=== PATIENT | male | born 1975 | race African-American/Black ===

== ENCOUNTER 2021-09-29 23:25 | Observation (INO) | payer OTHER, SELFPAY ==
--- NOTE | ~2021-09-29 | CT_ITS ---
EXAMINATION: CT ABDOMEN AND PELVIS WITHOUT CONTRAST CLINICAL INFORMATION: Rectal pressure/pain. Urinary symptoms. Question of prostatitis. COMPARISON: None TECHNIQUE: Multidetector volumetric imaging was performed from the superior aspect of the liver through the pubic symphysis. Sagittal and coronal reformatted images were obtained on the technologist's workstation. This CT examination was performed using dose optimization techniques as appropriate, variously including the following: *Automated exposure control *Adjustment of mA and/or kV according to patient size (this includes techniques or standardized protocols for targeted exams where dose is matched to indication/reason for exam; i.e. extremities or head) *Use of iterative reconstruction technique DLP: 559 mGy-cm FINDINGS: LUNG BASES: The visualized lung bases are unremarkable. LIVER, GALLBLADDER, AND BILIARY TREE: The liver is normal in size, shape, and attenuation. No focal hepatic lesion or biliary ductal dilatation is present. Gallbladder unremarkable. PANCREAS: Unremarkable. SPLEEN: Unremarkable. ADRENAL GLANDS: Unremarkable. KIDNEYS AND URETERS: The kidneys are normal in size, shape, and attenuation. No hydronephrosis, hydroureter, or calculi seen. No perinephric stranding. BLADDER: Underdistended. Accounting for this, the bladder wall still appears thickened and there is perivesicular fat stranding. GASTROINTESTINAL TRACT: Scattered sigmoid colonic diverticula. No evidence of diverticulitis. Normal appendix. Stomach and small bowel unremarkable. ABDOMINAL WALL: No significant hernia is appreciated. LYMPH NODES: Normal. VASCULAR: Unremarkable. PELVIC VISCERA: Prostate is moderately enlarged measuring 5.8 cm. There is a periprosthetic fat stranding, with inflammation extending posteriorly about the mesorectal fascia. OSSEOUS STRUCTURES: No acute or suspicious osseous abnormalities. CT/CT abdomen pelvis wo con IMPRESSION: Imaging findings are compatible with cystitis and prostatitis. Scattered sigmoid colonic diverticula without evidence of diverticulitis.
[2021-09-29 23:35] VITALS: BP 138/90; PULSE 100; RESP 14; TEMP 37.8; O2SAT 98; BMI 27.2
[2021-09-30] VITALS (10 sets, daily range): BP systolic 112–143; BP diastolic 65–90; PULSE 64–115; RESP 16–20; TEMP 35.9–38.2; O2SAT 96–98
--- NOTE | 2021-09-30 00:29 | ED.ABDPAIN ---
HPI - Abdominal Pain General Chief Complaint: Abdominal Pain Stated Complaint: constipation, abdominal pain Time Seen by Provider: 09/29/21 23:54 Source: patient and EMS Mode of arrival: EMS Limitations: no limitations History of Present Illness HPI narrative: 46-year-old male previously healthy here with reports of lower abdominal discomfort, rectal pressure and pain, decreased urination since Saturday evening. Patient tells me he has tried taking MiraLax, Colace and Pepto as he felt like he was constipated. He did have some loose stools today but still feels the urge to move his bowels. He also had a fever that was subjective on Saturday and . None today. No vomiting. Related Data Allergies Allergy/AdvReac Type Severity Reaction Status Date / Time amoxicillin [AMOXICILLIN] Allergy Unknown RASH Unverified 12/31/19 18:20 clindamycin [CLINDAMYCIN] Allergy Unknown rash,itchy, Unverified 12/31/19 18:20 difficulty breathing Pork/Porcine Containing Allergy Unknown UNKNOWN Unverified 12/31/19 18:20 Products [PORK/PORCINE CONTAINING PRODUCTS] Penicillins [PCN] AdvReac Intermediate HIVES Unverified 12/31/19 18:20 Review of Systems Review of Systems Yes all other systems are reviewed and are negative Constitutional: Reports no additional constitutional complaints, Denies body ache(s), Denies chills, Denies fever(s), Denies headache(s) and Denies weakness Eyes: Reports no additional eye complaints and Denies change in vision Reports system reviewed and no additional complaints, except as documented, Denies dizziness, Denies headache(s), Denies nasal congestion, Denies nasal discharge and Denies neck pain Cardiovascular: Reports no additional cardiovascular complaints, Denies chest pain, Denies leg edema and Denies dyspnea Respiratory: Reports no additional respiratory complaints, Denies cough and Denies dyspnea Gastrointestinal: Reports no additional gastrointestinal complaints, Reports abdominal pain, Denies diarrhea, Denies nausea and Denies vomiting Comments: rectal pressure and pain Genitourinary: Denies urinary incontinence Comments: decreased urination Musculoskeletal: Reports no additional musculoskeletal complaints, Denies back pain, Denies arthralgias, Denies joint swelling, Denies neck pain, Denies numbness and Denies tingling Skin/Breast: Reports system reviewed and no additional complaints, except as docu and Denies rash Reports system reviewed and no additional complaints, except as documented, Denies dizziness, Denies headache(s), Denies numbness, Denies tingling and Denies weakness PMFSH Past Medical History Attestation statement: The following information was validated with the patient. Source: old records reviewed and nursing notes reviewed Social History Social History Advance Directives: No Physical Exam ED Vital Signs: Vital Signs - 24 hr 09/29/21 23:35 09/30/21 00:33 09/30/21 01:32 Temperature 100.1 F 100.7 F H 99.7 F Pulse Rate 103 H Respiratory Rate 14 16 Blood Pressure 129/90 H Pulse Oximetry 98 Oxygen Delivery Method Room Air Room Air BMI result Body Mass Index 27.2 Const General: cooperative, healthy appearing and comfortable Orientation/consciousness: oriented to time Limitations: no limitations HENMT Head: Yes normal to inspection Ears: hearing grossly normal bilaterally Eyes General: appearance normal, both eyes and all related structures Pupils: Equal, round and reactive pupils present Neck Neck: Yes normal visual inspection Chest Chest palpation & inspection: normal inspection of the chest Resp Effort & Inspection: normal respiratory effort Auscultation: clear to auscultation bilaterally Cardio Rate: regular rate Rhythm: regular rhythm Peripheral pulses: Peripheral pulses 2+ throughout 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 Tachycardic. At this time infection is suspected. Blood cultures and lactic acid ordered. Antibiotics ordered. Time: 00:40 Reevaluation #2: CT consistent with prostatitis. Patient has a little mild leukocytosis and elevated lactic acid. He is having considerable amount of pain and so I will provide analgesia. Will admit to medicine service for IV antibiotics and pain control. Time: 01:40 Reevaluation #3: Spoke to Dr. Stokes who accepted admission Time: 01:45 MDM - Abdominal Pain MDM Narrative Medical decision making narrative: 46-year-old male previously healthy here with reports of 3 days of rectal pressure, rectal pain, lower abdominal discomfort, the urge to defecate, decreased urine output. Patient is taking Pepto, Colace, MiraLax at home with continued symptoms. He did have some loose stools earlier today but is having continued symptoms. His abdomen is soft nontender. He has active bowel sounds. His rectal exam is negative for any impaction. His prostate is boggy but nontender. Consider prostatitis. will check labs, UA, CT pelvis Medical Records Attestation: I reviewed the patient's medical records. Lab Data Attestation: I reviewed the patient's lab results. Result diagrams: 09/30/21 00:31 09/30/21 00:31 Labs: Lab Results 09/30/21 09/30/21 09/30/21 Range/Units 00:31 00:31 00:31 WBC 11.9 H (4.8-10.8) X10*3/uL RBC 5.34 (4.60-5.80) X10*6/uL Hgb 15.4 (14.0-18.0) g/dl Hct 45.9 (42.0-52.0) % MCV 86.0 (80.0-98.0) fL MCH 28.8 (27.0-33.0) pg MCHC 33.6 (31.0-36.0) g/dl RDW 12.9 (11.0-16.0) % Plt Count 144 L (160-400) X10*3/uL MPV 10.8 (9.4-12.4) fL Immature Gran % (Auto) 0.9 H (0.0-0.4) % Neut % (Auto) 78.4 H (45-73) % Lymph % (Auto) 10.4 L (20-40) % [place] % (Auto) 9.9 (2-11) % Eos % (Auto) 0.2 (0-4) % Baso % (Auto) 0.2 (0-2) % Lymph # (Auto) 1.2 (1.2-4.9) X10*3/uL [place] # (Auto) 1.2 (0.1-1.2) X10*3/uL Eos # (Auto) 0.0 (0.0-0.4) X10*3/uL Baso # (Auto) 0.0 (0.0-0.2) X10*3/uL Abs Immat Gran (auto) 0.11 H (0.00-0.03) X10*3/uL Absolute Neuts (auto) 9.4 H (2.0-8.3) x10*3/uL Absolute Nucleated RBC 0.000 (0.0-0.012) X10*3/uL Nucleated RBC % (auto) 0.0 (0.0-0.2) /100WBC Sodium 135 (135-145) mmol/L Potassium 4.9 (3.3-5.1) mmol/L Chloride 102 (96-108) mmol/L Carbon Dioxide 24 (22-29) mmol/L Anion Gap 14 (12-20) BUN 8 L (9-16) mg/dL Creatinine 1.38 (0.5-1.4) mg/dL Estim Creat Clear Calc 69.0 Estimated GFR 55 Random Glucose 114 (60-115) mg/dL Lactic Acid (0.5-2.0) mmol/L Calcium 9.1 (8.4-10.2) mg/dL Total Bilirubin 0.5 (0.0-1.0) mg/dL Direct Bilirubin 0.2 (0.0-0.5) mg/dL AST 17 (5-37) U/L ALT 39 (0-40) U/L Alkaline Phosphatase 109 (39-117) U/L Total Protein 6.9 (6.5-8.0) g/dL Albumin 4.0 (3.5-5.0) g/dL Urine Color YELLOW Urine Appearance HAZY Urine pH 6.5 (5.0-8.0) Ur Specific [place] 1.015 (1.005-1.025) Urine Protein 2+ H (NEG-TRACE) MG/DL Urine Glucose (UA) NEG (NEG) MG/DL Urine Ketones 15 (NEG) MG/DL Urine Blood 2+ H (NEG) Urine Nitrite NEG (NEG) Ur Leukocyte Esterase NEG (NEG) Urine RBC 0-2 (0) /HPF Urine WBC 0-2 (0-4) /HPF Ur Squamous Epith Cells TRACE /LPF Urine Bacteria TRACE /LPF Urine Mucus TRACE /LPF COVID-19 (JUDI) (Negative) COVID-19 Clin Com 09/30/21 09/30/21 Range/Units 00:50 01:03 WBC (4.8-10.8) X10*3/uL RBC (4.60-5.80) X10*6/uL Hgb (14.0-18.0) g/dl Hct (42.0-52.0) % MCV (80.0-98.0) fL MCH (27.0-33.0) pg MCHC (31.0-36.0) g/dl RDW (11.0-16.0) % Plt Count (160-400) X10*3/uL MPV (9.4-12.4) fL Immature Gran % (Auto) (0.0-0.4) % Neut % (Auto) (45-73) % Lymph % (Auto) (20-40) % [place] % (Auto) (2-11) % Eos % (Auto) (0-4) % Baso % (Auto) (0-2) % Lymph # (Auto) (1.2-4.9) X10*3/uL [place] # (Auto) (0.1-1.2) X10*3/uL Eos # (Auto) (0.0-0.4) X10*3/uL Baso # (Auto) (0.0-0.2) X10*3/uL Abs Immat Gran (auto) (0.00-0.03) X10*3/uL Absolute Neuts (auto) (2.0-8.3) x10*3/uL Absolute Nucleated RBC (0.0-0.012) X10*3/uL Nucleated RBC % (auto) (0.0-0.2) /100WBC Sodium (135-145) mmol/L Potassium (3.3-5.1) mmol/L Chloride (96-108) mmol/L Carbon Dioxide (22-29) mmol/L Anion Gap (12-20) BUN (9-16) mg/dL Creatinine (0.5-1.4) mg/dL Estim Creat Clear Calc Estimated GFR Random Glucose (60-115) mg/dL Lactic Acid 2.2 H* (0.5-2.0) mmol/L Calcium (8.4-10.2) mg/dL Total Bilirubin (0.0-1.0) mg/dL Direct Bilirubin (0.0-0.5) mg/dL AST (5-37) U/L ALT (0-40) U/L Alkaline Phosphatase (39-117) U/L Total Protein (6.5-8.0) g/dL Albumin (3.5-5.0) g/dL Urine Color Urine Appearance Urine pH (5.0-8.0) Ur Specific [place] (1.005-1.025) Urine Protein (NEG-TRACE) MG/DL Urine Glucose (UA) (NEG) MG/DL Urine Ketones (NEG) MG/DL Urine Blood (NEG) Urine Nitrite (NEG) Ur Leukocyte Esterase (NEG) Urine RBC (0) /HPF Urine WBC (0-4) /HPF Ur Squamous Epith Cells /LPF Urine Bacteria /LPF Urine Mucus /LPF COVID-19 (JUDI) Negative (Negative) COVID-19 Clin Com See Note Imaging Data CT scan - abdomen: Attestation: I personally reviewed and interpreted this imaging study as follows: Radiologist's impression: FINDINGS: LUNG BASES: The visualized lung bases are unremarkable.? LIVER, GALLBLADDER, AND BILIARY TREE: The liver is normal in size, shape, and attenuation. No focal hepatic lesion or biliary ductal dilatation is present. Gallbladder unremarkable.? PANCREAS: Unremarkable.? SPLEEN: Unremarkable.? ADRENAL GLANDS: Unremarkable.? KIDNEYS AND URETERS: The kidneys are normal in size, shape, and attenuation. No hydronephrosis, hydroureter, or calculi seen. No perinephric stranding. ? BLADDER: Underdistended. Accounting for this, the bladder wall still appears thickened and there is perivesicular fat stranding.? GASTROINTESTINAL TRACT: Scattered sigmoid colonic diverticula. No evidence of diverticulitis. Normal appendix. Stomach and small bowel unremarkable.? ABDOMINAL WALL: No significant hernia is appreciated.? LYMPH NODES: Normal. VASCULAR: Unremarkable. PELVIC VISCERA: Prostate is moderately enlarged measuring 5.8 cm. There is a periprosthetic fat stranding, with inflammation extending posteriorly about the mesorectal fascia.? OSSEOUS STRUCTURES: No acute or suspicious osseous abnormalities.? CT/CT abdomen pelvis wo con IMPRESSION: Imaging findings are compatible with cystitis and prostatitis. Scattered sigmoid colonic diverticula without evidence of diverticulitis. Discharge Plan Discharge Clinical Impression: Acute prostatitis, Leukocytosis, Elevated lactic acid level, Febrile Patient Disposition: Admitted As Inpatient
[2021-09-30 00:35] LABS: MANUAL DIFF FLAG NO
[2021-09-30 00:39] LABS: Appearance Urine HAZY; Basophils Percent Auto 0.2 % (0-2); Color Urine YELLOW; Eosinophils Percent Auto 0.2 % (0-4); Glucose Urine UA NEG (NEG); Hematocrit 45.9 % (42.0-52.0); Hemoglobin 15.4 g/dl (14.0-18.0); Imm Gran Abs Auto 0.11 X10*3/uL (0.00-0.03); Imm Gran Pct Auto 0.9 % (0.0-0.4); Leukocyte Esterase Urine NEG (NEG); Lymphocytes Absolute Auto 1.2 X10*3/uL (1.2-4.9); Lymphocytes Percent Auto 10.4 % (20-40); Mean Corpuscular HGB Conc 33.6 g/dl (31.0-36.0); Mean Corpuscular Hemoglobin 28.8 pg (27.0-33.0); Mean Platelet Volume 10.8 fL (9.4-12.4); Monocytes Absolute Auto 1.2 X10*3/uL (0.1-1.2); Monocytes Percent Auto 9.9 % (2-11); Neutrophils Absolute Auto 9.4 x10*3/uL (2.0-8.3); Neutrophils Percent Auto 78.4 % (45-73); Nitrite Urine NEG (NEG); PH 6.5 (5.0-8.0); Platelet Count 144 X10*3/uL (160-400); Red Blood Count 5.34 X10*6/uL (4.60-5.80); Red Cell Distribution Width 12.9 % (11.0-16.0); Specific Gravity - Urine 1.015 (1.005-1.025); UACC Culture Trigger NO; Urine Blood 2+ (NEG); Urine Ketones 15 MG/DL (NEG); Urine Protein 2+ MG/DL (NEG-TRACE); White Blood Count 11.9 X10*3/uL (4.8-10.8)
[2021-09-30 00:45] LABS: Bacteria Urine TRACE /LPF; Mucus Urine TRACE /LPF; RBC Urine 0-2 /HPF (0); Squamous Epithelial Cell Urine TRACE /LPF; WBC Urine 0-2 /HPF (0-4)
[2021-09-30 00:52] LABS: Alanine Aminotransferase 39 U/L (0-40); Alkaline Phosphatase 109 U/L (39-117); Anion Gap 14 (12-20); Aspartate Amino Transferase 17 U/L (5-37); Bilirubin Direct 0.2 mg/dL (0.0-0.5); Bilirubin Total 0.5 mg/dL (0.0-1.0); Blood Urea Nitrogen 8 mg/dL (9-16); Calcium 9.1 mg/dL (8.4-10.2); Carbon Dioxide 24 mmol/L (22-29); Chloride 102 mmol/L (96-108); Estimated Glomerular Filt Rate 55; Glucose Random 114 mg/dL (60-115); Potassium 4.9 mmol/L (3.3-5.1); Sodium 135 mmol/L (135-145); Total Protein 6.9 g/dL (6.5-8.0)
[2021-09-30] MEDS: levoFLOXacin/D5W 500 MG/100 ML PIGGYBACK 100 MG IV (01:04)
[2021-09-30] MEDS: 0.9 % Sodium Chloride 1,000 ML 999 ML IV (01:04)
[2021-09-30 01:15] LABS: Lactic Acid 2.2 mmol/L (0.5-2.0)
[2021-09-30 01:24] LABS: COVID-19 Test Negative (Negative)
[2021-09-30] MEDS: Ketorolac Tromethamine 30 MG/ML VIAL IVPUSH ×2 (01:33→09:07)
[2021-09-30] MEDS: Morphine Sulfate 4 MG/ML CARTRIDGE IVPUSH (02:57)
[2021-09-30 02:58] LABS: Reflex Lactate? Lactic Acid Added
[2021-09-30 03:42] LABS: ~Lactic Acid-LAB USE ONLY 0.8 mmol/L (0.5-2.0)
[2021-09-30 06:03] LABS: Hemoglobin 14.4 g/dl (14.0-18.0); Mean Corpuscular HGB Conc 33.5 g/dl (31.0-36.0); Mean Corpuscular Hemoglobin 28.7 pg (27.0-33.0); Mean Corpuscular Volume 85.7 fL (80.0-98.0); Mean Platelet Volume 11.1 fL (9.4-12.4); Platelet Count 148 X10*3/uL (160-400); Red Blood Count 5.02 X10*6/uL (4.60-5.80); Red Cell Distribution Width 12.9 % (11.0-16.0); White Blood Count 9.8 X10*3/uL (4.8-10.8)
[2021-09-30 06:15] LABS: Anion Gap 11 (12-20); Blood Urea Nitrogen 11 mg/dL (9-16); Calcium 8.6 mg/dL (8.4-10.2); Carbon Dioxide 25 mmol/L (22-29); Chloride 104 mmol/L (96-108); Estimated Glomerular Filt Rate > 60; Glucose Random 103 mg/dL (60-115); Potassium 4.3 mmol/L (3.3-5.1); Sodium 136 mmol/L (135-145)
[2021-09-30 06:29] LABS: Band Neutrophils Percent 9 % (3-5); Lymphocytes Absolute Manual 1.5 X10*3/uL (1.2-4.9); Lymphocytes Percent Manual 15 % (20-40); Monocytes Absolute Manual 0.6 X10*3/uL (0.1-1.2); Monocytes Percent Manual 6 % (2-11); Neutrophils Absolute Manual 7.7 X10*3/uL (2.0-8.3); Neutrophils Percent Manual 70 % (45-73)
[2021-09-30 06:30] LABS: Burr Cells 1+ (0-2) /OIF; Dohle Bodies PRESENT; Macrocytosis 1+ (5-14) /OIF; Microcytosis 1+ (5-14) /OIF; Platelet Estimate SLIGHTLY DECREASED (NORMAL); Platelet Morphology Comment NORMAL; Polychromasia 1+ (0-2) /OIF; RBC Morphology NOTED; Smudge Cells PRESENT
--- NOTE | 2021-09-30 06:48 | P.HPHOSP_ITS ---
History of Present Illness Date of Service: 09/30/21 Chief Complaint: constipation, pressure on urination this is a 46-year-old male with past medical history of hypertension who presents to the hospital with complaints of constipation and difficulty with urination. Patient reports that he has been having pressure-like symptoms in his pelvic area every time he use the bathroom, has had significant constipation as a result. He has pain on moving his bowels. He reports no fever no chills. Patient is sexually active but has not had any sexual intercourse over the few months. Patient denies no nausea no vomiting, no urinary symptoms, and no lower extremity edema. No chest pain, no shortness of breath. No cough. No headache or change in vision. On arrival to the ED patient vitals were found to be significant for a temperature of a 100.7 degrees, heart rate of 103, blood pressure of 129/90 Labs are significant for the WBC count of 9.8, UA negative, lactic acid of 2.2 pelvic abdominal ultrasound showed cystitis and prostatitis. Patient will be admitted and treated with IV antibiotics Review of Systems Review of Systems: Yes all other systems are reviewed and are negative [facility] Medical History (Updated 09/30/21 @ 06:51 by Dana Stokes MD) Hypertension Family History (Updated 09/30/21 @ 06:51 by Dana Stokes MD) Other No family history of cardiac disease Surgical History (Updated 09/30/21 @ 06:52 by Dana Stokes MD) No pertinent past surgical history Social History (Updated 09/30/21 @ 06:52 by Dana Stokes MD) Alcohol intake: current Patient Tobacco Use Status: Never used Tobacco Use of substances other than those prescribed or required for medical reasons: No Advance Directives: No Meds Allergies Allergy/AdvReac Type Severity Reaction Status Date / Time amoxicillin [AMOXICILLIN] Allergy Unknown RASH Unverified 12/31/19 18:20 clindamycin [CLINDAMYCIN] Allergy Unknown rash,itchy, Unverified 12/31/19 18:20 difficulty breathing Pork/Porcine Containing Allergy Unknown UNKNOWN Unverified 12/31/19 18:20 Products [PORK/PORCINE CONTAINING PRODUCTS] Penicillins [PCN] AdvReac Intermediate HIVES Unverified 12/31/19 18:20 Active Medications: Current Medications Acetaminophen (Acetaminophen 325 Mg Tablet) 650 mg PO Q6H PRN PRN Reason: Pain, Mild (Pain Scale 1-3) Docusate Sodium (Docusate Sodium 100 Mg Capsule) 100 mg PO DAILY PRN PRN Reason: Constipation Levofloxacin (Levaquin) 750 mg in 150 mls @ 100 mls/hr IV Q24H REPLACED BY [facility] Ondansetron HCl (Ondansetron Hcl 4 Mg/2 Ml Vial) 4 mg IVPUSH Q8H PRN PRN Reason: Nausea and Vomiting Pharmacy Consult (Consult Rx Perform Med Rec) 1 each MISCELLANE ONCE PRN PRN Reason: Consult order Sodium Chloride (0.9 % Sodium Chloride Flush 3 Ml Syringe) 3 ml IVFLUSH QSHIFT REPLACED BY [facility] Home Medications Medication Instructions Recorded Confirmed Last Taken Type lisinopril 5 mg PO DAILY 09/30/21 09/30/21 Unknown History Physical Exam Vital Signs and Narrative: Vital Signs: Last Vital Signs Temp 99.4 F 09/30/21 06:00 Pulse 92 09/30/21 06:00 Resp 16 09/30/21 06:00 BP 118/70 09/30/21 06:00 Pulse Ox 97 09/30/21 06:00 O2 Del Method 09/30/21 06:00 BMI result Body Mass Index 27.2 Const: General: cooperative and no acute distress Orientation/consciousness: patient oriented x3 Eyes: General: appearance normal, both eyes and all related structures Pupils: Equal, round and reactive pupils present Resp: Effort & Inspection: normal respiratory effort Auscultation: clear to auscultation bilaterally Cardio: Rate: regular rate Rhythm: regular rhythm GI: Palpation (GI): Soft to palpation Auscultation: normal bowel sounds Skin: General skin exam: no rashes or lesions noted Neuro: General: patient oriented x3 Cranial nerves: Yes Equal, round and reactive pupils present Cognition (Neuro): normal cognition Extrem: General: Yes normal to inspection and Yes no pedal edema Results Labs CBC and Chem 7: 09/30/21 05:39 09/30/21 05:39 Labs: Laboratory Results - last 24 hr 09/30/21 09/30/21 09/30/21 00:31 00:31 00:31 MCV 86.0 MCH 28.8 MCHC 33.6 RDW 12.9 Plt Count 144 L MPV 10.8 Immature Gran % (Auto) 0.9 H Neut % (Auto) 78.4 H Lymph % (Auto) 10.4 L [place] % (Auto) 9.9 Eos % (Auto) 0.2 Baso % (Auto) 0.2 Lymph # (Auto) 1.2 [place] # (Auto) 1.2 Eos # (Auto) 0.0 Baso # (Auto) 0.0 Abs Immat Gran (auto) 0.11 H Absolute Neuts (auto) 9.4 H Absolute Nucleated RBC 0.000 Nucleated RBC % (auto) 0.0 Neutrophils % (Manual) Band Neutrophils % Lymphocytes % (Manual) Monocytes % (Manual) Abs Neuts (Manual) Lymphocytes # (Manual) Monocytes # (Manual) Smudge Cells Dohle Bodies Platelet Estimate Plt Morphology Comment RBC Morphology Polychromasia Microcytosis Macrocytosis [place] Cells Anion Gap 14 Estim Creat Clear Calc 69.0 Estimated GFR 55 Random Glucose 114 Lactic Acid Lactic Acid F/U @ 2Hr Calcium 9.1 Total Bilirubin 0.5 Direct Bilirubin 0.2 AST 17 ALT 39 Alkaline Phosphatase 109 Total Protein 6.9 Albumin 4.0 Urine Color YELLOW Urine Appearance HAZY Urine pH 6.5 Ur Specific [place] 1.015 Urine Protein 2+ H Urine Glucose (UA) NEG Urine Ketones 15 Urine Blood 2+ H Urine Nitrite NEG Ur Leukocyte Esterase NEG Urine RBC 0-2 Urine WBC 0-2 Ur Squamous Epith Cells TRACE Urine Bacteria TRACE Urine Mucus TRACE COVID-19 (JUDI) COVID-19 Clin Com 09/30/21 09/30/21 09/30/21 00:50 01:03 03:26 MCV MCH MCHC RDW Plt Count MPV Immature Gran % (Auto) Neut % (Auto) Lymph % (Auto) [place] % (Auto) Eos % (Auto) Baso % (Auto) Lymph # (Auto) [place] # (Auto) Eos # (Auto) Baso # (Auto) Abs Immat Gran (auto) Absolute Neuts (auto) Absolute Nucleated RBC Nucleated RBC % (auto) Neutrophils % (Manual) Band Neutrophils % Lymphocytes % (Manual) Monocytes % (Manual) Abs Neuts (Manual) Lymphocytes # (Manual) Monocytes # (Manual) Smudge Cells Dohle Bodies Platelet Estimate Plt Morphology Comment RBC Morphology Polychromasia Microcytosis Macrocytosis [place]mele Cells Anion Gap Estim Creat Clear Calc Estimated GFR Random Glucose Lactic Acid 2.2 H* Lactic Acid F/U @ 2Hr 0.8 Calcium Total Bilirubin Direct Bilirubin AST ALT Alkaline Phosphatase Total Protein Albumin Urine Color Urine Appearance Urine pH Ur Specific Wing Urine Protein Urine Glucose (UA) Urine Ketones Urine Blood Urine Nitrite Ur Leukocyte Esterase Urine RBC Urine WBC Ur Squamous Epith Cells Urine Bacteria Urine Mucus COVID-19 (JUDI) Negative COVID-19 Clin Com See Note 09/30/21 09/30/21 05:39 05:39 MCV 85.7 MCH 28.7 MCHC 33.5 RDW 12.9 Plt Count 148 L MPV 11.1 Immature Gran % (Auto) Cancelled Neut % (Auto) Cancelled Lymph % (Auto) Cancelled [place] % (Auto) Cancelled Eos % (Auto) Cancelled Baso % (Auto) Cancelled Lymph # (Auto) Cancelled [place] # (Auto) Cancelled Eos # (Auto) Cancelled Baso # (Auto) Cancelled Abs Immat Gran (auto) Cancelled Absolute Neuts (auto) Cancelled Absolute Nucleated RBC 0.000 Nucleated RBC % (auto) 0.0 Neutrophils % (Manual) 70 Band Neutrophils % 9 H Lymphocytes % (Manual) 15 L Monocytes % (Manual) 6 Abs Neuts (Manual) 7.7 Lymphocytes # (Manual) 1.5 Monocytes # (Manual) 0.6 Smudge Cells PRESENT Dohle Bodies PRESENT Platelet Estimate SLIGHTLY DECREASED Plt Morphology Comment NORMAL RBC Morphology NOTED Polychromasia 1+ (0-2) Microcytosis 1+ (5-14) Macrocytosis 1+ (5-14) Parmele Cells 1+ (0-2) Anion Gap 11 L Estim Creat Clear Calc 75.0 Estimated GFR > 60 Random Glucose 103 Lactic Acid Lactic Acid F/U @ 2Hr Calcium 8.6 Total Bilirubin Direct Bilirubin AST ALT Alkaline Phosphatase Total Protein Albumin Urine Color Urine Appearance Urine pH Ur Specific Wing Urine Protein Urine Glucose (UA) Urine Ketones Urine Blood Urine Nitrite Ur Leukocyte Esterase Urine RBC Urine WBC Ur Squamous Epith Cells Urine Bacteria Urine Mucus COVID-19 (JUDI) COVID-19 Clin Com Imaging Radiologist's Impressions: Impressions Abdomen/Pelvis CT 09/30/21 01:05 IMPRESSION: Imaging findings are compatible with cystitis and prostatitis. Scattered sigmoid colonic diverticula without evidence of diverticulitis. Assessment and Plan (1) Acute prostatitis: Status: Acute (2) Sepsis: Status: Acute Plan 46-year-old male with past medical history of hypertension presents to the hospital with complaints of constipation and pressure on urination found to have prostatitis # sepsis - febrile, had tachycardia on arrival - secondary to prostatitis - IV antibiotics # acute prostatitis - will treat with IV antibiotics - follow cultures including STIs # hypertension - stable - continue home medications DVT prophylaxis: Early ambulation Quality Stroke Does the patient have a stroke diagnosis?: No VTE Prior VTE?: No VTE Risk Level:: Medical - low VTE Device Contraindication: Treatment Not Indicated VTE Drug Contraindication: Treatment Not Indicated
--- NOTE | 2021-09-30 07:21 | PHA.MEDREC ---
Pharmacy Consult ? Medication Reconciliation Pharmacy has completed the medication reconciliation.
--- NOTE | 2021-09-30 08:23 | MHC.CM.PN ---
CM met with Patient at bedside and addressed KRISHNAMURTHY with him, providing him with the original and placing a copy on the chart. Patient lives in a house with his Fiance and 2 children ages 10 & 11 years of age. Patient is functionally independent, requiring no services nor DME and working [employer].Home no services is the goal and CM has initiated and will follow for dc planning. Patient has received [employer] vax X2 and his PCP is from [place].
[2021-09-30] MEDS: 0.9 % Sodium Chloride Flush 3 ML SYRINGE IVFLUSH ×3 (09:08→20:31)
[2021-09-30] MEDS: Omeprazole 20 MG CAPSULE.DR PO (09:08)
[2021-09-30] MEDS: polyethylene glycoL 3350 17 GM POWD.PACK PO (09:08)
[2021-09-30] MEDS: Docusate Sodium 100 MG CAPSULE PO ×2 (09:08→20:30)
[2021-09-30] MEDS: Lactated Ringers 1,000 ML 100 ML IVCONT ×2 (10:00→20:31)
[2021-09-30 10:21] LABS: CT PCR NOT DETECTED (Not Detect.); NG PCR NOT DETECTED (Not Detect.)
--- NOTE | 2021-09-30 11:41 | PM.EVENT ---
Event Note Date of Service: 09/30/21 Event Note: 46y/o M with hx hypertension presents to the hospital with complaints of constipation and? possible prostatitis vitals seems fine physical exam: unchanged asssessment and plan: has less pressure sensation , seems slightly better blood cultures pending , urine cultures added continue iv antibiotics urology eval
[2021-09-30] MEDS: Acetaminophen 325 MG TABLET 650 MG PO (20:33)
[2021-10-01] MEDS: levoFLOXacin/D5W 750 MG/150 ML PIGGYBACK 100 MG IV (01:59)
[2021-10-01] MEDS: Ibuprofen 400 MG TABLET PO ×2 (02:09→09:35)
[2021-10-01 03:01] VITALS: BP 131/74; PULSE 82; RESP 18; TEMP 36.7; O2SAT 98
[2021-10-01 03:40] VITALS: RESP 18
[2021-10-01] MEDS: Lactated Ringers 1,000 ML 100 ML IVCONT ×2 (06:30→15:01)
[2021-10-01 07:45] VITALS: BP 120/56; PULSE 66; RESP 20; TEMP 37.1; O2SAT 97
--- NOTE | 2021-10-01 08:46 | PM.UROCN ---
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 Admitted to hospital with pelvic pressure for 2-3 days and constipation Imaging suggestive of cystitis and prostatitis Gram-negative rods on evaluation of peripheral smear UA negative but urine culture pending Recommendation combination of antibiotics, alpha-marino for prostate relaxation, and steroids Prednisone 20 mg daily added, doxazosin 2 mg daily added, continue with Levaquin and will be needed for minimum 14 days Review of Systems Constitutional: Constitutional: Reports as per HPI and Reports no additional constitutional complaints Cardiovascular: Cardiovascular: Reports as per HPI and Reports no additional cardiovascular complaints Respiratory: Respiratory: Reports as per HPI and Reports no additional respiratory complaints Gastrointestinal: Gastrointestinal: Reports as per HPI and Reports no additional gastrointestinal complaints Genitourinary: Genitourinary: Reports as per HPI Musculoskeletal: Musculoskeletal: Reports no additional musculoskeletal complaints and Reports as per HPI Neurologic: Reports system reviewed and no additional complaints, except as documented and Reports as per HPI PMFSH Past Medical History Medical History (Updated 09/30/21 @ 06:51 by Dana Stokes MD) Hypertension Family History Family History (Updated 09/30/21 @ 06:51 by Dana Stokes MD) Other No family history of cardiac disease Surgical History Surgical History (Updated 09/30/21 @ 06:52 by Dana Stokes MD) No pertinent past surgical history Social History Social History (Updated 09/30/21 @ 06:52 by Dana Stokes MD) Alcohol intake: current Patient Tobacco Use Status: Never used Tobacco service: No Current occupational status: employed Meds Allergies Allergy/AdvReac Type Severity Reaction Status Date / Time amoxicillin [AMOXICILLIN] Allergy Unknown RASH Unverified 12/31/19 18:20 clindamycin [CLINDAMYCIN] Allergy Unknown rash,itchy, Unverified 12/31/19 18:20 difficulty breathing Pork/Porcine Containing Allergy Unknown UNKNOWN Unverified 12/31/19 18:20 Products [PORK/PORCINE CONTAINING PRODUCTS] Penicillins [PCN] AdvReac Intermediate HIVES Unverified 12/31/19 18:20 Active Medications: Current Medications Acetaminophen (Acetaminophen 325 Mg Tablet) 650 mg PO Q6H PRN PRN Reason: Pain, Mild (Pain Scale 1-3) Last Admin: 09/30/21 20:33 Dose: 650 mg Docusate Sodium (Docusate Sodium 100 Mg Capsule) 100 mg PO DAILY PRN PRN Reason: Constipation Docusate Sodium (Docusate Sodium 100 Mg Capsule) 100 mg PO BID [facility] Last Admin: 09/30/21 20:30 Dose: 100 mg Levofloxacin (Levaquin) 750 mg in 150 mls @ 100 mls/hr IV Q24H [facility] Last Infusion: 10/01/21 03:50 Dose: Infused Lactated Ringer's (Lr) 1,000 mls @ 100 mls/hr IVCONT .Q10H [facility] Last Admin: 10/01/21 06:30 Dose: 100 mls/hr Ibuprofen (Ibuprofen 400 Mg Tablet) 400 mg PO Q6H PRN PRN Reason: Pain, Mild (Pain Scale 1-3) Last Admin: 10/01/21 02:09 Dose: 400 mg Omeprazole (Omeprazole 20 Mg Capsule.Dr) 20 mg PO DAILY@0630 [facility] Last Admin: 10/01/21 06:31 Dose: Not Given Ondansetron HCl (Ondansetron Hcl 4 Mg/2 Ml Vial) 4 mg IVPUSH Q8H PRN PRN Reason: Nausea and Vomiting Pharmacy Consult (Consult Rx Perform Med Rec) 1 each MISCELLANE ONCE PRN PRN Reason: Consult order Polyethylene Glycol (Polyethylene Glycol 3350 17 Gm Powd.Pack) 17 gm PO DAILY [facility] Last Admin: 09/30/21 09:08 Dose: 17 gm Sodium Chloride (0.9 % Sodium Chloride Flush 3 Ml Syringe) 3 ml IVFLUSH QSHIFT [facility] Last Admin: 09/30/21 20:31 Dose: 3 ml Home Medications Medication Instructions Recorded Confirmed Last Taken Type lisinopril 5 mg tablet 1 tab PO DAILY 09/30/21 09/30/21 Unknown History Physical Exam Vital Signs: Vital Signs: Last Vital Signs Temp 98.8 F 10/01/21 07:45 Pulse 66 10/01/21 07:45 Resp 20 10/01/21 07:45 BP 120/56 L 10/01/21 07:45 Pulse Ox 97 10/01/21 07:45 O2 Del Method 10/01/21 07:45 BMI result Body Mass Index 27.2 Const: General: cooperative, healthy appearing, comfortable and no acute distress Orientation/consciousness: patient oriented x3 HEENT: Face and sinus: Yes normal facial exam Mouth: moist mucous membranes Neck: Neck: Yes normal visual inspection, Yes full ROM and Yes trachea midline Chest: Chest palpation & inspection: normal inspection of the chest Resp: Effort & Inspection: normal respiratory effort, able to speak in complete sentences and no respiratory distress GI: Inspection: Yes normal to inspection Back/Spine/Pelvis: Cervical Spine: normal cervical lordosis Thoracic/Lumbar Spine: thoracic and lumbar spine normal to inspection Skin: General skin exam: no rashes or lesions noted Neuro: General: patient oriented x3, tone normal and moves all extremities Extrem: General: Yes normal to inspection and Yes capillary refill normal Results Labs Result diagrams: 09/30/21 05:39 09/30/21 05:39 Labs: Cardiac Enzymes 09/30/21 Range/Units 05:39 Total Creatine Kinase 121 (38-174) U/L Urine 09/30/21 Range/Units 00:31 Urine Color YELLOW Urine Appearance HAZY Urine pH 6.5 (5.0-8.0) Ur Specific Delta 1.015 (1.005-1.025) Urine Protein 2+ H (NEG-TRACE) MG/DL Urine Glucose (UA) NEG (NEG) MG/DL All other labs normal. Assessment and Plan (1) Acute prostatitis: Status: Acute Plan treatment of prostatitis Can review as outpatient Procedures Date of Service Date of Service: 10/01/21
[2021-10-01] MEDS: Docusate Sodium 100 MG CAPSULE PO ×2 (09:33→09:36)
[2021-10-01] MEDS: Acetaminophen 325 MG TABLET 650 MG PO ×3 (09:33→20:49)
[2021-10-01] MEDS: 0.9 % Sodium Chloride Flush 3 ML SYRINGE IVFLUSH ×2 (09:33→20:50)
[2021-10-01] MEDS: Omeprazole 20 MG CAPSULE.DR PO ×2 (09:34→09:35)
[2021-10-01 11:51] VITALS: BP 115/81; PULSE 72; RESP 18; O2SAT 98
[2021-10-01] MEDS: Doxazosin Mesylate 2 MG TABLET PO (12:08)
[2021-10-01] MEDS: predniSONE 20 MG TABLET PO (12:09)
[2021-10-01] MEDS: polyethylene glycoL 3350 17 GM POWD.PACK PO (12:09)
--- NOTE | 2021-10-01 13:40 | HO.PM.IMPN ---
Subjective Subjective Date of Service: 10/01/21 Interval History: acute prostatitis, gram-negative bacteremia Review of Systems pain and pressure is less than yesterday with urination, also saying urinating better than yesterday denies any chest pain or shortness of breath or abdominal pain or nausea or vomiting Physical Exam Vital Signs: Vital Signs: Last Vital Signs Temp 98.8 F 10/01/21 07:45 Pulse 72 10/01/21 11:51 Resp 18 10/01/21 11:51 BP 115/81 10/01/21 11:51 Pulse Ox 98 10/01/21 11:51 O2 Del Method 10/01/21 11:51 BMI result Body Mass Index 27.2 Appearance: Alert.? Oriented X3.? not in distress.? cvs: rrr, [id number] , no murmur res: clear to auscultation ,no rhonchii or wheezing abd: no rebound or guarding ,nt, bs present. Gu: pelvic pressure sensation improving ext pulses present , no cyanosis. neuro: axo3 , nonfocal. Objective Data Active Medications Acetaminophen (Acetaminophen 325 Mg Tablet) 650 mg PO Q6H [facility] Last Admin: 10/01/21 09:33 Dose: 650 mg Documented By: DELMA Docusate Sodium (Docusate Sodium 100 Mg Capsule) 100 mg PO DAILY PRN PRN Reason: Constipation Docusate Sodium (Docusate Sodium 100 Mg Capsule) 100 mg PO BID [facility] Last Admin: 10/01/21 09:36 Dose: 100 mg Documented By: DELMA Doxazosin Mesylate (Doxazosin Mesylate 2 Mg Tablet) 2 mg PO DAILY [facility]; Protocol Last Admin: 10/01/21 12:08 Dose: 2 mg Documented By: DELMA Levofloxacin (Levaquin) 750 mg in 150 mls @ 100 mls/hr IV Q24H [facility] Last Infusion: 10/01/21 03:50 Dose: 0 mls/hr Documented By: DACIA Lactated Ringer's (Lr) 1,000 mls @ 100 mls/hr IVCONT .Q10H [facility] Last Admin: 10/01/21 06:30 Dose: 100 mls/hr Documented By: DACIA Ibuprofen (Ibuprofen 400 Mg Tablet) 400 mg PO Q6H PRN PRN Reason: Pain, Mild (Pain Scale 1-3) Last Admin: 10/01/21 09:35 Dose: 400 mg Documented By: DELMA Omeprazole (Omeprazole 20 Mg Capsule.) 20 mg PO DAILY@0630 [facility] Last Admin: 10/01/21 09:34 Dose: 20 mg Documented By: DELMA Ondansetron HCl (Ondansetron Hcl 4 Mg/2 Ml Vial) 4 mg IVPUSH Q8H PRN PRN Reason: Nausea and Vomiting Pharmacy Consult (Consult Rx Perform Med Rec) 1 each MISCELLANE ONCE PRN PRN Reason: Consult order Polyethylene Glycol (Polyethylene Glycol 3350 17 Gm Powd.Pack) 17 gm PO DAILY [facility] Last Admin: 10/01/21 12:09 Dose: 17 gm Documented By: DELMA Prednisone (Prednisone 20 Mg Tablet) 20 mg PO DAILY [facility] Last Admin: 10/01/21 12:09 Dose: 20 mg Documented By: DELMA Sodium Chloride (0.9 % Sodium Chloride Flush 3 Ml Syringe) 3 ml IVFLUSH QSHIFT [facility] Last Admin: 10/01/21 09:33 Dose: 3 ml Documented By: DELMA Labs CBC & Chem 7: 09/30/21 05:39 09/30/21 05:39 Microbiology Microbiology Results: Microbiology 09/30/21 15:30 Urine Culture - Preliminary Urine clean catch - Clean Catch Midstream No growth to date. 09/30/21 00:50 Blood Culture - Preliminary Blood - Venous Gram negative leonora 09/30/21 00:50 Blood Culture - Preliminary Blood - Venous Gram negative leonora Assessment and Plan (1) Gram-negative bacteremia: Status: Acute Plan 46-year-old male? with past medical history of hypertension presents to the hospital with complaints of constipation and? pressure on urination found to have prostatitis #? sepsis improving gr neg bacteremia -? febrile, leukocytosis resolved -? secondary to prostatitis -? IV antibiotics added id eval for bacteremia #? acute prostatitis -? will treat with IV antibiotics -? follow cultures including STIs urology evaluation Noted #? hypertension -? stable -? continue home medications ?DVT prophylaxis:? Early ambulation need for inpatient: bacteremia gram-negative- identification and sensitivities pending antibiotics Quality Stroke Does the patient have a stroke diagnosis?: No VTE Prior VTE?: No VTE Risk Level:: Medical - low VTE Device Contraindication: Treatment Not Indicated VTE Drug Contraindication: Treatment Not Indicated
[2021-10-01 15:16] VITALS: BP 120/65; PULSE 67; RESP 18; TEMP 36.7; O2SAT 97
[2021-10-01 19:29] VITALS: BP 111/68; PULSE 68; RESP 18; TEMP 37.2; O2SAT 98
[2021-10-02] VITALS: BP 125/65; PULSE 64; RESP 18; TEMP 36.8; O2SAT 97
[2021-10-02] MEDS: levoFLOXacin/D5W 750 MG/150 ML PIGGYBACK 100 MG IV (00:08)
[2021-10-02] MEDS: Lactated Ringers 1,000 ML 100 ML IVCONT (01:58)
[2021-10-02] MEDS: Acetaminophen 325 MG TABLET 650 MG PO ×2 (02:01→08:56)
[2021-10-02 03:43] VITALS: BP 128/66; PULSE 59; RESP 18; TEMP 36.4; O2SAT 97
[2021-10-02 08:00] VITALS: BP 119/56; PULSE 58; RESP 18; TEMP 36.4; O2SAT 97
[2021-10-02] MEDS: Docusate Sodium 100 MG CAPSULE PO (08:57)
[2021-10-02] MEDS: polyethylene glycoL 3350 17 GM POWD.PACK PO (08:57)
[2021-10-02] MEDS: Doxazosin Mesylate 2 MG TABLET PO (08:57)
[2021-10-02] MEDS: predniSONE 20 MG TABLET PO (08:57)
[2021-10-02 11:32] VITALS: BP 118/60; PULSE 65; RESP 18; TEMP 36.6; O2SAT 97
--- NOTE | 2021-10-02 11:55 | HO.PM.IMPN ---
Subjective Subjective Date of Service: 10/02/21 Interval History: acute prostaitis, bactermia Review of Systems seems improving, less pressure in pelvic area Denies any nausea or vomiting or cough or phlegm or fever chills. Physical Exam Vital Signs: Vital Signs: Last Vital Signs Temp 97.8 F 10/02/21 11:32 Pulse 65 10/02/21 11:32 Resp 18 10/02/21 11:32 BP 118/60 10/02/21 11:32 Pulse Ox 97 10/02/21 11:32 O2 Del Method 10/02/21 11:32 BMI result Body Mass Index 27.2 Appearance: Alert.? Oriented X3.? not in distress.? cvs: rrr, [id number] , no murmur res: clear to auscultation ,no rhonchii or wheezing abd: no rebound or guarding ,nt, bs present. Gu: pelvic pressure sensation improving ext pulses present , no cyanosis. neuro: axo3 , nonfocal. Objective Data Active Medications Acetaminophen (Acetaminophen 325 Mg Tablet) 650 mg PO Q6H [facility] Last Admin: 10/02/21 08:56 Dose: 650 mg Documented By: AR Docusate Sodium (Docusate Sodium 100 Mg Capsule) 100 mg PO DAILY PRN PRN Reason: Constipation Docusate Sodium (Docusate Sodium 100 Mg Capsule) 100 mg PO BID [facility] Last Admin: 10/02/21 08:57 Dose: 100 mg Documented By: AR Doxazosin Mesylate (Doxazosin Mesylate 2 Mg Tablet) 2 mg PO DAILY [facility]; Protocol Last Admin: 10/02/21 08:57 Dose: 2 mg Documented By: AR Levofloxacin (Levaquin) 750 mg in 150 mls @ 100 mls/hr IV Q24H [facility] Last Infusion: 10/02/21 02:04 Dose: 0 mls/hr Documented By: FRANKIE Omeprazole (Omeprazole 20 Mg Capsule.) 20 mg PO DAILY@0630 [facility] Last Admin: 10/01/21 09:34 Dose: 20 mg Documented By: DELMA Ondansetron HCl (Ondansetron Hcl 4 Mg/2 Ml Vial) 4 mg IVPUSH Q8H PRN PRN Reason: Nausea and Vomiting Pharmacy Consult (Consult Rx Perform Med Rec) 1 each MISCELLANE ONCE PRN PRN Reason: Consult order Polyethylene Glycol (Polyethylene Glycol 3350 17 Gm Powd.Pack) 17 gm PO DAILY [facility] Last Admin: 10/02/21 08:57 Dose: 17 gm Documented By: AR Prednisone (Prednisone 20 Mg Tablet) 20 mg PO DAILY [facility] Last Admin: 10/02/21 08:57 Dose: 20 mg Documented By: AR Sodium Chloride (0.9 % Sodium Chloride Flush 3 Ml Syringe) 3 ml IVFLUSH QSHIFT [facility] Last Admin: 10/02/21 08:56 Dose: Not Given Documented By: AR Non-Admin Reason: IV Running Labs CBC & Chem 7: 09/30/21 05:39 09/30/21 05:39 Microbiology Microbiology Results: Microbiology 09/30/21 15:30 Urine Culture - Final Urine clean catch - Clean Catch Midstream No growth. 09/30/21 00:50 Blood Culture - Final Blood - Venous Serratia marcescens 09/30/21 00:50 Blood Culture - Final Blood - Venous Serratia marcescens Assessment and Plan (1) Gram-negative bacteremia: Status: Acute Plan 46-year-old male? with past medical history of hypertension presents to the hospital with complaints of constipation and? pressure on urination found to have prostatitis #? sepsis improving bacteremia- Serratia marcescens -? febrile, leukocytosis resolved -? secondary to prostatitis -? IV antibiotics added id eval for bacteremia #? acute prostatitis -? will treat with IV antibiotics -? follow cultures including STIs urology evaluation Noted #? hypertension -? stable -? continue home medications ?DVT prophylaxis:? Early ambulation need for inpatient: bacteremia gram-negative- identification and sensitivities pending antibiotics Quality Stroke Does the patient have a stroke diagnosis?: No VTE Prior VTE?: No VTE Risk Level:: Medical - low VTE Device Contraindication: Treatment Not Indicated VTE Drug Contraindication: Treatment Not Indicated
--- NOTE | 2021-10-02 14:05 | P.DS_ITS ---
DS: Providers Provider Date of Service: 10/02/21 Date of admission: 09/30/21 01:47 Primary care physician: Unknown Physician Consults: 09/30/21 08:15 Consult to Urology Routine Consulting Provider: [facility] Reason for consultation: acute prostatitis Has provider been notified: No 10/02/21 13:42 Consult to Infectious Diseases Routine Consulting Provider: Zahra Peterson Reason for consultation: prostatitis /bacteremia Has provider been notified: No DS: Diagnosis Discharge Diagnosis (1) Gram-negative bacteremia: Status: Acute DS: Summary Hospital Course Hospital Course: 46-year-old male with past medical history of hypertension who presents to the hospital with complaints of constipation and difficulty with urination.? Patient reports that he has been having pressure-like symptoms in his pelvic area every time he use the bathroom, has had significant constipation as a result.? He has pain on moving his bowels.? He reports no fever no chills.? Patient is sexually active but has not had any sexual intercourse over the few months.? Patient denies no nausea no vomiting,? no urinary symptoms, and no lower extremity edema.? No chest pain,? no shortness of breath.? No cough.? No headache or change in vision.? On arrival to the ED patient? vitals were found to be significant for a temperature of a 100.7 degrees, heart rate of 103, blood pressure of 129/90 Labs are significant for the? WBC count of 9.8,? UA negative, lactic acid of 2.2 ?pelvic abdominal ultrasound showed cystitis and prostatitis. ? Patient will be admitted and treated with IV antibiotics. Hospitalist course: Patient came to the hospital because of pelvic discomfort and found to have prostatitis acute as well as bacteremia: initially started on IV antibiotics- seems to be improving, subsequently patient leukocytosis improved, no fevers, antibiotics changed to p.o. after blood culture sensitivities resulted. patient was seen by Urology and ID: switched to p.o. antibiotics, Flomax, s teroid. further management outpatient with PCP and Urology. Above management discussed with the patient in detail length he understand and in agreement with the above plan, time spent 50 minute. Time Spent with Patient Time attestation: Total time spent providing and/or coordinating discharge services: Discharge coordination time: Greater than 30 minutes Quality: Safe Use of Opioids Does Pt have an Active Cancer Diagnosis on the Problem List?: No Quality: Stroke Does the patient have a stroke diagnosis?: No Physical Exam Vital Signs: Vital Signs: Last Vital Signs Temp 97.8 F 10/02/21 11:32 Pulse 65 10/02/21 11:32 Resp 18 10/02/21 11:32 BP 118/60 10/02/21 11:32 Pulse Ox 97 10/02/21 11:32 O2 Del Method 10/02/21 11:32 BMI result Body Mass Index 27.2 Appearance: Alert.? Oriented X3.? not in distress.? cvs: rrr, [id number] , no murmur res: clear to auscultation ,no rhonchii or wheezing abd: no rebound or guarding ,nt, bs present. Gu: pelvic pressure sensation improving ext pulses present , no cyanosis. neuro: axo3 , nonfocal. DS: Data Additional Comments Additional comments: 09/30/21 05:39? Microbiology Microbiology Results: Microbiology ?09/30/21 15:30 Urine Culture - Final ?Urine clean catch - Clean Catch Midstream ?? No growth. ?09/30/21 00:50 Blood Culture - Final ?Blood - Venous ?? Serratia marcescens ?09/30/21 00:50 Blood Culture - Final ?Blood - Venous ?? Serratia marcescens Discharge Plan Discharge Patient Disposition: Home, Self-Care Discharge Diagnosis: sepsis/ bacteremia secondary to acute prostatitis. Referrals: Duane Hitchcock MD [Physician] - 1 Week (follow up outpatiently) PhysicianLevi [Primary Care Provider] - 1 Week Discharge Medications: New docusate sodium 100 mg Capsule 100 mg PO DAILY PRN (Reason: Constipation) Qty: 30 0RF doxazosin 2 mg Tablet 2 mg PO DAILY Qty: 30 0RF Protocol: Hold for SBP< HOLD for SBP < : 90 polyethylene glycol 3350 17 gram Powder In Packet 17 g PO DAILY Qty: 30 0RF prednisone 20 mg tablet 20 mg PO DAILY Qty: 1 0RF levofloxacin 500 mg tablet 500 mg PO DAILY Qty: 13 0RF Continued lisinopril 5 mg tablet 1 tab PO DAILY Discharge Orders: Discharge Order (Routine); Ordered 10/02/21 Ordered By: Caleb Aceves Diet: advance to usual diet Activity on Discharge: As tolerated Stand Alone Forms: Patient Portal Discharge page Care Plan Goals: Patient came to the hospital because of pelvic discomfort and found to have prostatitis acute as well as bacteremia: initially started on IV antibiotics- seems to be improving, subsequently patient leukocytosis improved, no fevers, antibiotics changed to p.o. after blood culture sensitivities resulted. patient was seen by Urology and ID: switched to p.o. antibiotics, Flomax, steroid. further management outpatient with PCP and Urology. Health Concerns: Please complete course of antibiotics, Flomax and steroids. if for pelvic pain get worse or fever or any new symptoms please come to the nearest emergency room for further evaluation. Plan of Treatment: As above. Assessment: As above.
--- NOTE | 2021-10-02 14:05 | MHC.CM.PN ---
PT TO DC HOME TODAY WITH NO SERVICES
== END 2021-10-02 16:15 | disposition home or self-care (01) ==
LOC: HO.ED 09-30 01:44 → HO.EDOVER 09-30 01:54 → HO.IMC 09-30 06:14
PROVIDERS: Nurse Practitioner Family; Admitting Provider Internal Medicine; Emergency Provider Emergency Medicine; Visit Provider Internal Medicine
DX: N41.0 Acute prostatitis (principal); A41.53 Sepsis due to Serratia; D72.829 Elevated white blood cell count, unspecified; R74.02 Elevation of levels of lactic acid dehydrogenase [LDH]; R50.9 Fever, unspecified; K59.00 Constipation, unspecified; K57.30 Diverticulosis of large intestine without perforation or abscess without bleeding; I10 Essential (primary) hypertension; Z20.822 Contact with and (suspected) exposure to COVID-19; Z88.1 Allergy status to other antibiotic agents; Z88.0 Allergy status to penicillin; Z91.014 Allergy to mammalian meats; Z16.19 Resistance to other specified beta lactam antibiotics; Z79.52 Long term (current) use of systemic steroids; Z79.899 Other long term (current) drug therapy
CPT/HCPCS: 36415; 51798; 74176; 80048; 80076; 81001; 82550; 83605; 85007; 85025; 85027; 87040; 87077; 87086; 87186; 87205; 87491; 87591; 87635; 96361; 96365; 96375; 96376; 99219; 99284; 99285; J1885; J1956; J2270

== ENCOUNTER → 2022-05-09 10:23 | Outpatient (BNVA) | payer OTHER, SELFPAY | PROVIDERS: Visit Provider Urology | DX: Z13.89 Encounter for screening for other disorder (principal) ==

== ENCOUNTER 2022-07-11 21:39 | Emergency (ER) | payer OTHER, SELFPAY ==
[2022-07-11 22:42] VITALS: BP 126/93; PULSE 81; RESP 16; TEMP 36.6; O2SAT 97; BMI 27.9
--- NOTE | 2022-07-12 00:23 | ED.EXTPRO ---
HPI - Extremity Problem General Chief complaint: Extremity Problem Stated complaint: gout L foot Time Seen by Provider: 07/12/22 00:09 Source: patient Mode of arrival: ambulatory Limitations: no limitations History of Present Illness HPI Narrative: 47-year-old male who presents emergency department for evaluation of a gout attack was left great toe. The patient states that this would be his 3rd episode of gout in 2-3 years. He states that approximately 24 hours ago he developed pain in his left great toe. Pain is gotten progressively worse. He states that his toe is now red and swollen as well. Presentation is similar to his gout presentation in the past. Related Data Home Medications Medication Instructions Recorded Confirmed lisinopril 5 mg tablet 1 tab PO DAILY 09/30/21 05/09/22 Previous Rx's Medication Instructions Recorded polyethylene glycol 3350 17 gram 17 g PO DAILY #30 ea 10/02/21 oral powder packet tadalafil 20 mg tablet 20 mg PO ONCE PRN sexual activity 05/09/22 30 days #30 tabs prednisone 20 mg tablet 60 mg PO DAILY 5 days #15 tabs 07/12/22 Allergies Allergy/AdvReac Type Severity Reaction Status Date / Time amoxicillin [AMOXICILLIN] Allergy Unknown RASH Verified 07/11/22 22:45 clindamycin [CLINDAMYCIN] Allergy Unknown rash,itchy, Verified 07/11/22 22:45 difficulty breathing Pork/Porcine Containing Allergy Unknown UNKNOWN Verified 07/11/22 22:45 Products [PORK/PORCINE CONTAINING PRODUCTS] Penicillins [PCN] AdvReac Intermediate HIVES Verified 07/11/22 22:45 Review of Systems Review of Systems: Yes all other systems are reviewed and are negative PMFSH Past Medical History PMFSH Narrative: Social history: 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 Medical History Acute prostatitis Elevated lactic acid level Febrile Gram-negative bacteremia Hypertension Leukocytosis Sepsis Surgical History No pertinent past surgical history Family History Family History Other No family history of cardiac disease Social History Social History Alcohol intake: current Patient Tobacco Use Status: Never used Tobacco Advance Directives: No Advance Directives Information Provided: Yes service: No Current occupational status: employed Physical Exam Vital Signs: Vital Signs: Last Vital Signs Temp 97.9 F 07/11/22 22:42 Pulse 81 07/11/22 22:42 Resp 16 07/11/22 22:42 BP 126/93 H 07/11/22 22:42 Pulse Ox 97 07/11/22 22:42 O2 Del Method Room Air 07/11/22 22:42 BMI result Body Mass Index 27.9 Vital signs were normal. General: Awake alert male patient, very pleasant cooperative in no distress Extremities: The patient has no tenderness, swelling or erythema to his left knee or ankle joint. The patient's left MTP joint is erythematous, warm to the touch and extremely tender to palpation. Patient has no inflammation of the other joints of his foot. Medical Decision Making Medical Decision Making MDM Narrative: 47-year-old male with a history of gout who presents emergency department for evaluation of 24 hours of pain, swelling, erythema of his left great toe MTP joint. Patient's findings are consistent with gout. Patient was given prednisone 60 mg orally here in the emergency department. He was started on prednisone 60 mg once a day for 5 days. He was also advised to take Tylenol for his pain. He was given a work note. Differential Diagnosis Differential diagnosis includes was not limited to gout, pseudogout, joint infection, inflammatory arthritis Discharge Plan Discharge Clinical Impression: Gouty arthritis of left great toe Patient Disposition: Home, Self-Care Instructions: Gout (ED) Additional Instructions: Your findings are consistent with gout of your left great toe. Take prednisone 20 mg pills, 3 pills once a day for 5 days. While you are taking prednisone, do not take any NSAIDs (Motrin, Advil, ibuprofen, Aleve, naproxen). Take Tylenol (acetaminophen) 500 mg pills, 2 pills every 6 hours as needed for pain. When you are feeling better and you do not have a flare-up of gout, you should follow-up with your doctor can get a uric acid test of your blood. If you have high uric acid in your blood and your not having a flare up then you may benefit from a medicine called allopurinol which may prevent gout attacks. Follow-up with your doctor in 2 days. Please return to the emergency department if your symptoms get worse or if you develop any symptoms that are concerning to you. Please see work note Prescriptions: New prednisone 20 mg tablet 60 mg PO DAILY 5 Days Qty: 15 0RF No Action lisinopril 5 mg tablet 1 tab PO DAILY polyethylene glycol 3350 17 gram Powder In Packet 17 g PO DAILY Qty: 30 0RF tadalafil 20 mg tablet 20 mg PO ONCE PRN (Reason: sexual activity) 30 Days Qty: 30 0RF Stand Alone Forms: Work/School Release
[2022-07-12] MEDS: predniSONE 20 MG TABLET 60 MG PO (00:33)
== END 2022-07-12 00:39 | disposition home or self-care (01) ==
PROVIDERS: Emergency Provider Emergency Medicine Emergency Medical Services
DX: M10.072 Idiopathic gout, left ankle and foot (principal); Z79.899 Other long term (current) drug therapy
CPT/HCPCS: 99282; 99283

== ENCOUNTER 2022-09-25 22:18 | Emergency (ER) | payer OTHER, SELFPAY ==
[2022-09-25 22:41] VITALS: BP 147/81; PULSE 73; RESP 16; TEMP 37.1; O2SAT 98; BMI 27.9
[2022-09-25 23:10] LABS: COVID-19 Test Negative (Negative); IDNOW Serial# BCCEAD1C
[2022-09-25 23:11] LABS: IDNOW Serial# 08D9AD1C; Strep A Nucleic Acid Negative (Negative)
--- NOTE | 2022-09-26 00:46 | ED_ITS ---
HPI - General Adult General Chief complaint: General Medical Stated complaint: ?Allergies/?Sore throat Time Seen by Provider: 09/26/22 00:16 Source: patient Mode of arrival: ambulatory Limitations: no limitations History of Present Illness HPI narrative: Patient with no known allergic reaction to any kind of food history of hypertension on lisinopril was having tuna sandwich around 19:00 noticed throat pain and swelling no rash no lip swelling or tongue swelling able to breathe normally took Benadryl 50 mg around 20:00 still feeling the same patient never had any allergic reaction to tuna fish before. Has normal voice Related Data Home Medications Medication Instructions Recorded Confirmed lisinopril 5 mg tablet 1 tab PO DAILY 09/30/21 05/09/22 Previous Rx's Medication Instructions Recorded polyethylene glycol 3350 17 gram 17 g PO DAILY #30 ea 10/02/21 oral powder packet prednisone 20 mg tablet 60 mg PO DAILY 5 days #15 tabs 07/12/22 tadalafil 20 mg tablet 20 mg PO ONCE PRN sexual activity 08/22/22 30 days #30 tabs amlodipine 2.5 mg tablet 2.5 mg PO DAILY #30 tabs 09/26/22 prednisone 20 mg tablet 40 mg PO DAILY #10 tabs 09/26/22 Allergies Allergy/AdvReac Type Severity Reaction Status Date / Time amoxicillin [AMOXICILLIN] Allergy Unknown RASH Verified 07/11/22 22:45 clindamycin [CLINDAMYCIN] Allergy Unknown rash,itchy, Verified 07/11/22 22:45 difficulty breathing Pork/Porcine Containing Allergy Unknown UNKNOWN Verified 07/11/22 22:45 Products [PORK/PORCINE CONTAINING PRODUCTS] Penicillins [PCN] AdvReac Intermediate HIVES Verified 07/11/22 22:45 Review of Systems Review of Systems: Yes all other systems are reviewed and are negative PMFSH Past Medical History Medical History Acute prostatitis Elevated lactic acid level Febrile Gram-negative bacteremia Hypertension Leukocytosis Sepsis Surgical History No pertinent past surgical history Family History Family History Other No family history of cardiac disease Social History Social History Alcohol intake: current Patient Tobacco Use Status: Never used Tobacco Smoked in Last 30 Days: No Use of substances other than those prescribed or required for medical reasons: No Advance Directives: No Advance Directives Information Provided: No service: No Current occupational status: employed Physical Exam ED Vital Signs: Vital Signs - 24 hr 09/25/22 22:41 Temperature 98.8 F Pulse Rate 73 Respiratory Rate 16 Blood Pressure 147/81 H Pulse Oximetry 98 Oxygen Delivery Method Room Air BMI result Body Mass Index 27.9 Appearance: Alert. Oriented X3. No acute distress. Eyes: PERRLA, No Nystagmus ENT: Edema of the uvula, tongue normal lips normal Oral Mucosa moist Neck: Normal inspection. Neck supple. CVS: Normal heart rate and rhythm. Pulses normal. Respiratory: No respiratory distress. Equal air entry bilateral, no wheezing/rales/rhonchi Abdomen: Soft and nontender. Bowel sounds are present, no mass palpable, no CVA tenderness Skin: Skin warm and dry. Normal skin color. Normal skin turgor. Extremities: No lower extremity edema. No calf tenderness Neuro: Oriented X 3. No motor deficit. No sensory deficit.No cerebellar signs , Medications Administered Discontinued Medications Generic Name Dose Route Start Last Admin Trade Name Freq PRN Reason Stop Dose Admin Dexamethasone 10 mg 09/26/22 00:46 09/26/22 01:02 Dexamethasone 2 Mg Tablet PO 09/26/22 00:47 10 mg ONCE ONE Administration Famotidine 20 mg 09/26/22 00:46 09/26/22 01:02 Famotidine 20 Mg Tablet PO 09/26/22 00:47 20 mg ONCE ONE Administration Medical Decision Making Medical Decision Making [facility] Narrative: Patient with localized angioedema likely from use of a cm lisinopril although patient had tuna fish but he had never had any allergic reaction to food or tuna. Swelling is not life-threatening patient able to breathe normally and drinking normally. Patient already taken Benadryl at home will give dose of Decadron advised to stop lisinopril and start him on amlodipine for blood pressure control Lab Data [facility] Lab Attestation statement: I reviewed the patient's lab results. Labs: Lab Results 09/25/22 09/25/22 Range/Units 22:43 22:43 COVID-19 (JUDI) Negative (Negative) COVID-19 Clin Com See Note S. pyogenes GrpA ROCIO Negative (Negative) Discharge Plan Discharge Clinical Impression: CAMELIA inhibitor-aggravated angioedema Patient Disposition: Home, Self-Care Instructions: Angioedema (ED) Additional Instructions: Likely you have angioedema secondary to use of lisinopril Stop lisinopril Will start you on amlodipine 2.5 mg daily for blood pressure control Follow with PCP Report to the ER if worsening of the swelling You may take Benadryl 1-2 tablets every 6 hours as needed Will give a course of prednisone also Prescriptions: New prednisone 20 mg tablet 40 mg PO DAILY Qty: 10 0RF amlodipine 2.5 mg tablet 2.5 mg PO DAILY Qty: 30 0RF No Action tadalafil 20 mg tablet 20 mg PO ONCE PRN (Reason: sexual activity) 30 Days Qty: 30 11RF lisinopril 5 mg tablet 1 tab PO DAILY polyethylene glycol 3350 17 gram Powder In Packet 17 g PO DAILY Qty: 30 0RF prednisone 20 mg tablet 60 mg PO DAILY 5 Days Qty: 15 0RF Interventions: ED Discharge Assessment Last Done: 09/26/22 01:20 Discharge Date/Time: 09/26/22 01:21
[2022-09-26] MEDS: dexAMETHasone 2 MG TABLET 10 MG PO (01:02)
[2022-09-26] MEDS: Famotidine 20 MG TABLET PO (01:02)
== END 2022-09-26 01:21 | disposition home or self-care (01) ==
PROVIDERS: Emergency Provider Internal Medicine
DX: T78.3XXA Angioneurotic edema, initial encounter (principal); T46.4X5A Adverse effect of angiotensin-converting-enzyme inhibitors, initial encounter; R07.0 Pain in throat
CPT/HCPCS: 87635; 87651; 99283; J8540

== ENCOUNTER 2022-11-17 21:00 | Emergency (ER) | payer OTHER, SELFPAY ==
--- NOTE | ~2022-11-17 | XR_ITS ---
EXAMINATION: XR WRIST, LEFT CLINICAL INFORMATION: Left wrist pain COMPARISON: None available. TECHNIQUE: PA, lateral, and oblique views of the left wrist. FINDINGS: The bones and soft tissues are normal. No fracture. Alignment is anatomic with normal joint spaces. No erosions or abnormal soft tissue calcifications. XR/XR wrist LT min 3V IMPRESSION: Normal left wrist.
--- NOTE | ~2022-11-17 | CT_ITS ---
EXAMINATION: CT ABDOMEN AND PELVIS WITH CONTRAST CLINICAL INFORMATION: Lower abdominal pain. History of prostatitis. COMPARISON: 09.30.2021 TECHNIQUE: Multidetector volumetric images were obtained from the superior aspect of the liver through the pubic symphysis following administration 85 mL of Omnipaque 350 intravenous contrast. Sagittal and coronal reformatted images were obtained on the technologist's workstation. Oral contrast: No This CT examination was performed using dose optimization techniques as appropriate, variously including the following: *Automated exposure control *Adjustment of mA and/or kV according to patient size (this includes techniques or standardized protocols for targeted exams where dose is matched to indication/reason for exam; i.e. extremities or head) *Use of iterative reconstruction technique DLP: 595 mGy-cm FINDINGS: LUNG BASES: The visualized lung bases are unremarkable. LIVER, GALLBLADDER, AND BILIARY TREE: The liver is normal in size, shape, and attenuation. No focal hepatic lesion or biliary ductal dilatation is present. The gallbladder is unremarkable with no evidence of radiopaque gallstones, gallbladder wall thickening, or obvious pericholecystic inflammatory changes. PANCREAS: Unremarkable. SPLEEN: Unremarkable. ADRENAL GLANDS: Unremarkable. KIDNEYS AND URETERS: The kidneys are normal in size, shape, and attenuation. No hydronephrosis, hydroureter, or calculi seen. No perinephric stranding. BLADDER: Unremarkable. GASTROINTESTINAL TRACT: The small and large bowel are unremarkable. The appendix is unremarkable. ABDOMINAL WALL: No significant hernia is appreciated. LYMPH NODES: Normal. VASCULAR: Unremarkable. PELVIC VISCERA: Prostate and seminal vesicles are unremarkable. OSSEOUS STRUCTURES: No acute or suspicious osseous abnormalities. CT/CT abdomen pelvis w IV con IMPRESSION: No acute findings within the abdomen or pelvis to explain the patient's symptomatology. Fleischner guidelines were followed.
[2022-11-17 21:16] VITALS: BP 124/86; PULSE 77; RESP 18; TEMP 36.7; O2SAT 96; BMI 28.7
[2022-11-17 22:19] VITALS: BP 165/75; PULSE 63; RESP 20; TEMP 36.9; O2SAT 99
[2022-11-17 22:56] LABS: MANUAL DIFF FLAG NO
[2022-11-17 23:04] LABS: Basophils Percent Auto 0.5 % (0-2); Eosinophils Absolute Auto 0.1 X10*3/uL (0.0-0.4); Eosinophils Percent Auto 2.2 % (0-4); Hematocrit 44.5 % (42.0-52.0); Hemoglobin 15.3 g/dl (14.0-18.0); Imm Gran Abs Auto 0.02 X10*3/uL (0.00-0.03); Imm Gran Pct Auto 0.4 % (0.0-0.4); Lymphocytes Absolute Auto 2.7 X10*3/uL (1.2-4.9); Mean Corpuscular HGB Conc 34.4 g/dl (31.0-36.0); Mean Corpuscular Hemoglobin 28.7 pg (27.0-33.0); Mean Corpuscular Volume 83.5 fL (80.0-98.0); Mean Platelet Volume 10.4 fL (9.4-12.4); Monocytes Absolute Auto 0.5 X10*3/uL (0.1-1.2); Monocytes Percent Auto 8.1 % (2-11); Neutrophils Absolute Auto 2.2 x10*3/uL (2.0-8.3); Neutrophils Percent Auto 39.8 % (45-73); Platelet Count 204 X10*3/uL (160-400); Red Blood Count 5.33 X10*6/uL (4.60-5.80); Red Cell Distribution Width 12.5 % (11.0-16.0); White Blood Count 5.6 X10*3/uL (4.8-10.8)
[2022-11-17 23:06] LABS: Appearance Urine Clear; Color Urine Yellow; Glucose Urine UA Negative (Negative); Leukocyte Esterase Urine Negative (Negative); Nitrite Urine Negative (Negative); Urine Blood Negative (Negative); Urine Ketones Negative (Negative); Urine Protein Negative (Neg-Trace)
[2022-11-17 23:16] LABS: Alanine Aminotransferase 32 U/L (0-40); Albumin Level 4.3 g/dL (3.5-5.0); Alkaline Phosphatase 90 U/L (39-117); Anion Gap 16 (12-20); Aspartate Amino Transferase 19 U/L (5-37); Bilirubin Direct 0.1 mg/dL (0.0-0.5); Bilirubin Total 0.3 mg/dL (0.0-1.0); Blood Urea Nitrogen 16 mg/dL (9-16); Calcium 9.5 mg/dL (8.4-10.2); Carbon Dioxide 21 mmol/L (22-29); Chloride 106 mmol/L (96-108); Creatinine Clr Calc Pharmacy 77.1; Estimated Glomerular Filt Rate 57; Glucose Random 100 mg/dL (60-115); Lipase 34 U/L (8-78); Magnesium 2.2 mg/dL (1.6-2.6); Potassium 3.9 mmol/L (3.3-5.1); Sodium 139 mmol/L (135-145); Total Protein 7.1 g/dL (6.5-8.0)
--- NOTE | 2022-11-17 23:57 | ED_ITS ---
HPI - Abdominal Pain General Chief Complaint: Extremity Injury, Upper Stated Complaint: left wrist pain Time Seen by Provider: 11/17/22 22:01 Source: patient Mode of arrival: ambulatory Limitations: no limitations History of Present Illness HPI narrative: 47yoM with a PMHx of HTN, prostatitis, erectile dysfunction being followed by Urology who is presenting to the ER with complaints of suprapubic / lower abdominal discomfort that has been intermittent over the past month. He reports it is usually worse after he eats. He reports he has some relief when he has a bowel movement. He reports he has a follow-up with Urology coming up this month. He denies any thoughts of STDs. 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 He denies any fevers, chills, chest pain or shortness of breath, paresthesias, radiation of the abdominal pain, flank pain, back pain, dysuria, hematuria, abnormal penile discharge, black or bloody stools, constipation, recent travel or sick contacts, testicular pain or swelling, lesions or rashes to the penile area or any other symptoms complaints or concerns at this time. MD elicited complaint: abdominal pain Pertinent past history: other ( Prostatitis and erectile dysfunction) Onset (ago): day(s) ( abdominal pain has been on and off over the past month left wrist pain for approximately 6 months) Pain Consistency: intermittent Location: suprapubic Severity: mild Quality: cramping and aching Radiation: none Migration to: no migration Exacerbating factors: eating Relieving factors: bowel movement Associated symptoms: diarrhea Related Data Home Medications Medication Instructions Recorded Confirmed lisinopril 5 mg tablet 1 tab PO DAILY 09/30/21 05/09/22 Previous Rx's Medication Instructions Recorded polyethylene glycol 3350 17 gram 17 g PO DAILY #30 ea 10/02/21 oral powder packet prednisone 20 mg tablet 60 mg PO DAILY 5 days #15 tabs 07/12/22 tadalafil 20 mg tablet 20 mg PO ONCE PRN sexual activity 08/22/22 30 days #30 tabs amlodipine 2.5 mg tablet 2.5 mg PO DAILY #30 tabs 09/26/22 prednisone 20 mg tablet 40 mg PO DAILY #10 tabs 09/26/22 cyclobenzaprine 10 mg tablet 10 mg PO Q8H #14 tabs 11/18/22 naproxen 500 mg tablet 500 mg PO BID PRN pain #14 tabs 11/18/22 Allergies Allergy/AdvReac Type Severity Reaction Status Date / Time amoxicillin [AMOXICILLIN] Allergy Unknown RASH Verified 07/11/22 22:45 clindamycin [CLINDAMYCIN] Allergy Unknown rash,itchy, Verified 07/11/22 22:45 difficulty breathing Pork/Porcine Containing Allergy Unknown UNKNOWN Verified 07/11/22 22:45 Products [PORK/PORCINE CONTAINING PRODUCTS] Penicillins [PCN] AdvReac Intermediate HIVES Verified 07/11/22 22:45 Review of Systems Review of Systems Constitutional : No Weight loss, No Fever, No Chills, No Night Sweats, No Fatigue, No Malaise ENT/Mouth : No Hearing loss, No Ear Pain, No Nasal Congestion, No Sinus Pain, No Hoarseness, No sore throat, No Rhinorrhea, No Swallowing Difficulty Eyes: No Eye Pain, No Swelling, No Redness, No Foreign Body, No Discharge, No Vision Changes Cardiovascular : No Chest Pain, No SOB, No Dyspnea on Exertion, No Orthopnea, No Edema, No Palpitations Respiratory : No Cough, No Sputum, No Wheezing, No Smoke Exposure, No Dyspnea Gastrointestinal : No Nausea, No Vomiting, + Diarrhea, No Constipation, + abdom inal Pain, No Hematochezia, No Melena Genitourinary : no irregular bleeding, No Dysuria, No Urinary Frequency, No Hematuria, No Urinary Incontinence, No Urgency, No Flank Pain, No Urinary Flow Changes, No Hesitancy Musculoskeletal : + left wrist joint pain, No Myalgias, No Joint Swelling Skin : No Skin Lesions, No rash Neuro : No Weakness, No Numbness, No Paresthesias, No Loss of Consciousness, No Dizziness, No Headache Psych : No Anxiety/Panic, No Depression, No SI/HI/AH/VH, No Social Issues, Heme/Lymph: No Bruising, No Bleeding,No Lymphadenopathy Endocrine : No Polyuria, No Polydipsia, No Temperature Intolerance Yes all other systems are reviewed and are negative PMFSH Past Medical History Attestation statement: The following information was validated with the patient. Source: old records reviewed and nursing notes reviewed Medical History Acute prostatitis Elevated lactic acid level Febrile Gram-negative bacteremia Hypertension Leukocytosis Sepsis Surgical History No pertinent past surgical history Family History Family History Other No family history of cardiac disease Social History Social History Alcohol intake: current Patient Tobacco Use Status: Never used Tobacco Advance Directives: No Advance Directives Information Provided: Yes service: No Current occupational status: employed Physical Exam ED Vital Signs: Vital Signs - 24 hr 11/17/22 21:16 11/17/22 22:19 Temperature 98.1 F 98.4 F Pulse Rate 77 63 Respiratory Rate 18 20 Blood Pressure 124/86 165/75 H Pulse Oximetry 96 99 Oxygen Delivery Method Room Air Room Air BMI result Body Mass Index 28.7 vital signs have been reviewed as normal and appeared to be correct. Blood pressure normal. Heart rate normal. Respiration rate normal. Temperature normal. Oxygen saturation normal. Appearance: Alert. Oriented X3. No acute distress. Head: Normal external exam. Normocephalic. Atraumatic. Eyes: PERRLA. EOMI. Conjunctiva and sclera normal. Eyelids normal. ENT: harynx normal. Uvula midline. Moist mucous membranes. No lesions/ulcerations or masses noted on the tongue. Normal voice. No trismus noted. No drooling noted. No muffled voice noted. Neck: Normal inspection. Neck supple. FROM. No adenopathy. No meningeal signs. CVS: Normal heart rate and rhythm. Heart sound normal. Pulses normal throughout. No murmurs/rales/gallops. Respiratory: No respiratory distress. Painless inspiration. Breath sounds normal. No wheezes/rales/rhonchi noted. No accessory muscle usage noted or decreased air movement noted. Abdomen: Soft and TTP of suprapubic abd. Bowel sounds normal in all 4 quadrants. No distention noted. No organomegaly noted. No visible injury noted. Back: No CVA tenderness. Full range of motion noted. Nontender. No rashes/lesion/induration/fluctuance or signs of infection noted. Skin: Skin warm and dry. Normal skin color. Normal skin turgor. No rashes/lesions/lacerations noted. Extremities: No upper/lower extremity edema. to left wrist patient does have some TTP at dorsal aspect. FROm. No obvious ligamentous of tendon injury noted. No erythe,a. +tinel's test. +Prayer's test and phalen's test. Otherwise all other Extremities exhibit normal range of motion and nontender. Neuro: Oriented X 3. No motor deficit. No sensory deficit. Reflexes normal. Normal steady gait. No focal neuro deficits noted. CN's II-XII intact bilaterally? Vascular: + radial pulses/+ 2 distal pedal pulses/+2 dorsalis pedis b/l. Normal cap refill. No cyanosis noted to upper extremity nails and lower extremity toes nails. Course Course Course Narrative: 22:30pm - 47yoM with a PMHx of HTN, prostatitis, erectile dysfunction being followed by Urology who is presenting to the ER with complaints of suprapubic / lower abdominal discomfort that has been intermittent over the past month. He reports it is usually worse after he eats. He reports he has some relief when he has a bowel movement. He reports he has a follow-up with Urology coming up this month. He denies any thoughts of STDs. 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 patient most likely UTI versus prostatitis. Abdominal exam without peritoneal signs. No evidence of acute abdomen at this time. Well appearing. Low suspicion for acute hepatobiliary disease (includng acute cholecystitis), acute infectious processes (pneumonia, hepatitis, pyelonephritis, appendicitis, gonorrhea, chlamydia), testicular torsion, epididymitis, variceal, hydrocele, vascular catastrophe, bowel obstruction or viscus perforation. Presentation not consistent with other acute, emergent causes of abdominal pain at this time. patient also complaining of left wrist pain not consistent with DVT, septic joint, fracture, dislocation. Most likely carpal tunnel syndrome. Plan: Labs, left wrist x-ray, UA, gonorrhea chlamydia urine, CT scan abdomen pelvis with IV contrast provide a L of IV fluids and re-evaluate. Reevaluation(s) Reevaluation #1: Labs reviewed patient's carbon dioxide 21. Otherwise all other labs are within normal limits. UA within normal limits no evidence of UTI. Gonorrhea chlamydia urine Negative. CT scan of abdomen pelvis with IV contrast negative for any acute processes. Left wrist x-ray negative for any acute processes. Patient most likely muscle strain of his abdomen he continues to deny any testicular pain or swelling or penile pain therefore I do not believe he needs an ultrasound of testicles or scrotum. He also is refusing due to he reports he is not having pain there. He reports that he has a GI and urologist that he can follow-up with. He also already has a wrist placed in place. Therefore will DC home with naproxen and Flexeril and instructions to follow-up with PCP/GI/urologist and to return if any new or worsening symptoms. Patient understands agrees with this plan. Time: 00:55 Medical Decision Making Medical Decision Making MDM Narrative: see course listed in detail Differential Diagnosis Differential Diagnoses: The differential diagnosis associated with the presentation includes see course listed in detail Admission/Observation Consideration of admission/observation: Escalation of care including admission/observation considered Lab Data MDM Lab Attestation statement: I reviewed the patient's lab results. 11/17/22 22:49 11/17/22 22:49 Labs: Lab Results 11/17/22 11/17/22 11/17/22 Range/Units 22:49 22:49 22:58 WBC 5.6 (4.8-10.8) X10*3/uL RBC 5.33 (4.60-5.80) X10*6/uL Hgb 15.3 (14.0-18.0) g/dl Hct 44.5 (42.0-52.0) % MCV 83.5 (80.0-98.0) fL MCH 28.7 (27.0-33.0) pg MCHC 34.4 (31.0-36.0) g/dl RDW 12.5 (11.0-16.0) % Plt Count 204 D (160-400) X10*3/uL MPV 10.4 (9.4-12.4) fL Immature Gran % (Auto) 0.4 (0.0-0.4) % Neut % (Auto) 39.8 L (45-73) % Lymph % (Auto) 49.0 H (20-40) % Ida % (Auto) 8.1 (2-11) % Eos % (Auto) 2.2 (0-4) % Baso % (Auto) 0.5 (0-2) % Lymph # (Auto) 2.7 (1.2-4.9) X10*3/uL Ida # (Auto) 0.5 (0.1-1.2) X10*3/uL Eos # (Auto) 0.1 (0.0-0.4) X10*3/uL Baso # (Auto) 0.0 (0.0-0.2) X10*3/uL Abs Immat Gran (auto) 0.02 (0.00-0.03) X10*3/uL Absolute Neuts (auto) 2.2 (2.0-8.3) x10*3/uL Absolute Nucleated RBC 0.000 (0.0-0.012) X10*3/uL Nucleated RBC % (auto) 0.0 (0.0-0.2) /100WBC Sodium 139 (135-145) mmol/L Potassium 3.9 (3.3-5.1) mmol/L Chloride 106 (96-108) mmol/L Carbon Dioxide 21 L (22-29) mmol/L Anion Gap 16 (12-20) BUN 16 (9-16) mg/dL Creatinine 1.34 (0.5-1.4) mg/dL Estim Creat Clear Calc 77.1 Estimated GFR 57 Random Glucose 100 (60-115) mg/dL Calcium 9.5 D (8.4-10.2) mg/dL Magnesium 2.2 (1.6-2.6) mg/dL Total Bilirubin 0.3 (0.0-1.0) mg/dL Direct Bilirubin 0.1 (0.0-0.5) mg/dL AST 19 (5-37) U/L ALT 32 (0-40) U/L Alkaline Phosphatase 90 (39-117) U/L Total Protein 7.1 (6.5-8.0) g/dL Albumin 4.3 (3.5-5.0) g/dL Lipase 34 (8-78) U/L Urine Color Urine Appearance Urine pH (5.0-9.0) Ur Specific [place] (1.005-1.025) Urine Protein (Neg-Trace) mg/dL Urine Glucose (UA) (Negative) mg/dL Urine Ketones (Negative) mg/dL Urine Blood (Negative) Urine Nitrite (Negative) Ur Leukocyte Esterase (Negative) Chlam trachomat DNA PCR NOT DETECTED (Not Detect.) N.gonorrhoeae DNA (PCR) NOT DETECTED (Not Detect.) 11/17/22 Range/Units 22:58 WBC (4.8-10.8) X10*3/uL RBC (4.60-5.80) X10*6/uL Hgb (14.0-18.0) g/dl Hct (42.0-52.0) % MCV (80.0-98.0) fL MCH (27.0-33.0) pg MCHC (31.0-36.0) g/dl RDW (11.0-16.0) % Plt Count (160-400) X10*3/uL MPV (9.4-12.4) fL Immature Gran % (Auto) (0.0-0.4) % Neut % (Auto) (45-73) % Lymph % (Auto) (20-40) % Ida % (Auto) (2-11) % Eos % (Auto) (0-4) % Baso % (Auto) (0-2) % Lymph # (Auto) (1.2-4.9) X10*3/uL Ida # (Auto) (0.1-1.2) X10*3/uL Eos # (Auto) (0.0-0.4) X10*3/uL Baso # (Auto) (0.0-0.2) X10*3/uL Abs Immat Gran (auto) (0.00-0.03) X10*3/uL Absolute Neuts (auto) (2.0-8.3) x10*3/uL Absolute Nucleated RBC (0.0-0.012) X10*3/uL Nucleated RBC % (auto) (0.0-0.2) /100WBC Sodium (135-145) mmol/L Potassium (3.3-5.1) mmol/L Chloride (96-108) mmol/L Carbon Dioxide (22-29) mmol/L Anion Gap (12-20) BUN (9-16) mg/dL Creatinine (0.5-1.4) mg/dL Estim Creat Clear Calc Estimated GFR Random Glucose (60-115) mg/dL Calcium (8.4-10.2) mg/dL Magnesium (1.6-2.6) mg/dL Total Bilirubin (0.0-1.0) mg/dL Direct Bilirubin (0.0-0.5) mg/dL AST (5-37) U/L ALT (0-40) U/L Alkaline Phosphatase (39-117) U/L Total Protein (6.5-8.0) g/dL Albumin (3.5-5.0) g/dL Lipase (8-78) U/L Urine Color Yellow Urine Appearance Clear Urine pH 7.0 (5.0-9.0) Ur Specific [place] 1.020 (1.005-1.025) Urine Protein Negative (Neg-Trace) mg/dL Urine Glucose (UA) Negative (Negative) mg/dL Urine Ketones Negative (Negative) mg/dL Urine Blood Negative (Negative) Urine Nitrite Negative (Negative) Ur Leukocyte Esterase Negative (Negative) Chlam trachomat DNA PCR (Not Detect.) N.gonorrhoeae DNA (PCR) (Not Detect.) Independent Interpretation I performed an independent interpretation of an: CT Scan Interpretation: CT scan abdomen pelvis with IV contrast and left wrist x-ray reviewed by myself this is my independent interpretation agreeable with radiologist report Radiology Impression Discussion of test interpretation with radiology: I have reviewed the radiologist's reading. Radiologist Impression: FINDINGS: The bones and soft tissues are normal. No fracture. Alignment is anatomic with normal joint spaces. No erosions or abnormal soft tissue calcifications.? XR/XR wrist LT min 3V IMPRESSION: Normal left wrist. FINDINGS: LUNG BASES: The visualized lung bases are unremarkable.? LIVER, GALLBLADDER, AND BILIARY TREE: The liver is normal in size, shape, and attenuation. No focal hepatic lesion or biliary ductal dilatation is present. The gallbladder is unremarkable with no evidence of radiopaque gallstones, gallbladder wall thickening, or obvious pericholecystic inflammatory changes.? PANCREAS: Unremarkable.? SPLEEN: Unremarkable.? ADRENAL GLANDS: Unremarkable.? KIDNEYS AND URETERS: The kidneys are normal in size, shape, and attenuation. No hydronephrosis, hydroureter, or calculi seen. No perinephric stranding. ? BLADDER: Unremarkable.? GASTROINTESTINAL TRACT: The small and large bowel are unremarkable. The appendix is unremarkable.? ABDOMINAL WALL: No significant hernia is appreciated.? LYMPH NODES: Normal. VASCULAR: Unremarkable. PELVIC VISCERA: Prostate and seminal vesicles are unremarkable.? OSSEOUS STRUCTURES: No acute or suspicious osseous abnormalities.? CT/CT abdomen pelvis w IV con IMPRESSION: No acute findings within the abdomen or pelvis to explain the patient's symptomatology. ? Fleischner guidelines were followed. External Record Review External record reviewed: Inpatient record, Office record, Outpatient record, Prior outpatient labs, Prior outpatient radiology, Primary care record and Outside ED record all prior labs/imaging /EKG and notes that are accessible in our system reviewed by myself Prescription Management I considered prescription management with: Pain Medication Chronic Conditions Patient?s care impacted by: Hypertension and Other ( prostatitis erectile dysfunction) Social Determinants Patient?s care significantly limited by Social Determinants of Health including: Other Social Determinant of Health Medications Administered Discontinued Medications Generic Name Dose Route Start Last Admin Trade Name Freq PRN Reason Stop Dose Admin Iohexol 85 ml 11/18/22 00:07 11/18/22 00:07 Iohexol 350 Mg/Ml 100 Ml Infus..Btl IV 11/18/22 00:08 85 ml ONCE ONE Administration Discharge Plan Discharge Clinical Impression: Acute carpal tunnel syndrome of left wrist, Abdominal pain Patient Disposition: Home, Self-Care Instructions: Abdominal Pain (ED), Carpal Tunnel Surgery (DC) Prescriptions: New naproxen 500 mg tablet 500 mg PO BID PRN (Reason: pain) Qty: 14 0RF cyclobenzaprine 10 mg tablet 10 mg PO Q8H Qty: 14 0RF No Action tadalafil 20 mg tablet 20 mg PO ONCE PRN (Reason: sexual activity) 30 Days Qty: 30 11RF lisinopril 5 mg tablet 1 tab PO DAILY polyethylene glycol 3350 17 gram Powder In Packet 17 g PO DAILY Qty: 30 0RF prednisone 20 mg tablet 60 mg PO DAILY 5 Days Qty: 15 0RF prednisone 20 mg tablet 40 mg PO DAILY Qty: 10 0RF amlodipine 2.5 mg tablet 2.5 mg PO DAILY Qty: 30 0RF Referrals: [facility] [place] [facility] [place] [facility] [Provider Group] ( as needed) Physician,Unknown J [Primary Care Provider] - (your pcp/urologist and GI ) Stand Alone Forms: Work/School Release
[2022-11-18] MEDS: iohexoL 350 MG/ML 100 ML INFUS..BTL 85 ML IV (00:07)
[2022-11-18 00:33] LABS: CT PCR NOT DETECTED (Not Detect.); NG PCR NOT DETECTED (Not Detect.)
== END 2022-11-18 01:33 | disposition home or self-care (01) ==
PROVIDERS: Physician Assistant Medical; Emergency Provider Emergency Medicine
DX: G56.02 Carpal tunnel syndrome, left upper limb (principal); R10.30 Lower abdominal pain, unspecified; I10 Essential (primary) hypertension; N41.0 Acute prostatitis; Z79.899 Other long term (current) drug therapy
CPT/HCPCS: 0353U; 36415; 73110; 74177; 80053; 81003; 82248; 83690; 83735; 85025; 99283; 99284; Q9967

== ENCOUNTER 2022-11-27 08:49 | Outpatient (AMB) | payer OTHER, SELFPAY ==
--- NOTE | 2022-11-27 08:51 | MHC.OFFVIS ---
Intake Intake Visit Reasons: Prostatitis follow up Intake Note: Patient is present for Follow Up Prostatitis Urology Medications: tadalafil Blood Thinner: None Financial Institution President Required: No Tow Car Driver: Tow Car Driver offered & declined Accompanied by: Self / Same As Patient Allergies amoxicillin [AMOXICILLIN] Allergy (Unknown, Verified 11/27/22 10:19) RASH clindamycin [CLINDAMYCIN] Allergy (Unknown, Verified 11/27/22 10:19) rash,itchy, difficulty breathing Pork/Porcine Containing Products [PORK/PORCINE CONTAINING PRODUCTS] Allergy (Unknown, Verified 11/27/22 10:19) UNKNOWN Penicillins [PCN] Adverse Reaction (Intermediate, Verified 11/27/22 10:19) HIVES Medication List - Last Reconciled 11/27/22 by AMBER Lawrence amlodipine 2.5 mg PO DAILY cyclobenzaprine 10 mg PO Q8H lisinopril 1 tab PO DAILY naproxen 500 mg PO BID PRN polyethylene glycol 3350 17 grams PO DAILY prednisone 20 mg PO DAILY 5 days sulfamethoxazole-trimethoprim 800-160 mg (Bactrim DS) 1 tab PO BID 14 days tadalafil 20 mg PO ONCE PRN 30 days HPI HPI Comments History of Present Illness Details Hayder is a pleasant 47-year-old male patient of Dr. Joaquin. He presents to the office today for follow-up of his prostatitis. Patient reports seeking emergency room care approximately 2 weeks ago for ongoing lower abdominal/pelvic pain and had issues with his left wrist. In review of patient's chart it appears CT of the abdomen was ordered and performed through emergency room and no acute findings were noted. When asked patient reports he continues with urinary urgency, urinary frequency, nocturia, and lower bladder/pelvic pressure. He otherwise denies incontinence, hematuria, dysuria, foul smelling urine, changes to urinary stream, flank pain, fever, and or chills. Patient with previous history of admission to hospital for prostatitis last September. MARIAN;boggy prostate no suspicious nodules palpated. Discussed in office prostate massage for further assessment evaluation with microgen testing. In office urinalysis results reviewed with the patient today. PVR 0ml's. He denies any exposure to STDs, these testicular pain or abnormal penile discharge. He otherwise offers no issues or concerns at this time. [facility] Medical History Acute prostatitis Elevated lactic acid level Febrile Gram-negative bacteremia Hypertension Leukocytosis Sepsis Surgical History No pertinent past surgical history Family History Other No family history of cardiac disease Social History Alcohol intake: current Patient Tobacco Use Status: Never used Tobacco service: No Current occupational status: employed Review of Systems Const Reports as per HPI Eyes Reports no additional complaints ENT Reports no additional complaints Card Reports no additional complaints Resp Reports no additional complaints GI Reports no additional complaints Reports as per HPI Musc Reports as per HPI Neuro Reports no additional complaints Psych Reports no additional complaints Endo Reports no additional complaints Physical Exam Const General: cooperative, healthy appearing, comfortable, no acute distress, well developed, alert and awake Orientation/consciousness: patient oriented x3 Limitations: no limitations HEENT Head: Yes normal to inspection, Yes normocephalic and Yes atraumatic Ears: hearing grossly normal bilaterally Eyes General: appearance normal, both eyes and all related structures Neck Neck: Yes normal visual inspection and Yes trachea midline Chest Chest palpation & inspection: normal inspection of the chest Resp Effort & Inspection: normal respiratory effort and able to speak in complete sentences Cardio Rate: regular rate GI Inspection: Yes normal to inspection Rectal Exam - Male: Yes visual inspection normal, Yes normal sphincter tone and Yes prostate abnormal (boggy ) General: Yes no CVA tenderness Back/Spine/Pelvis Back: no CVA tenderness Skin General skin exam: no rashes or lesions noted Neuro General: patient oriented x3 Extrem General: Yes normal to inspection Psych Appearance: grossly normal and well kempt Mental Status: mental status grossly normal Speech and movement: Normal speech and movement present and Clear speech present Affect: normal affect Attitude: cooperative Thought process: Normal thought process present Thought content: Normal thought content present Insight: Fair insight present (Psych) Judgement: Fair judgement present (Psych) Results AMB Urinalysis, Automated UA Leukoctes 0 Edmond/uL Last Edit by Carmelo Velez on 11/27/22 09:05 UA Nitrite Negative Last Edit by WyattiChartsveronica Velez on 11/27/22 09:05 UA Urobilinogen 0.2 mg/dL Last Edit by Carmelo Velez on 11/27/22 09:05 UA Protein 15 mg/dL Last Edit by Carmelo Velez on 11/27/22 09:05 UA pH 7.0 Last Edit by Carmelo Velez on 11/27/22 09:05 UA Blood 0 Rohan/uL Last Edit by Carmelo Velez on 11/27/22 09:05 UA Specific [place] 1.010 Last Edit by Carmelo Velez on 11/27/22 09:05 UA Ketone Last Edit by Carmelo Velez on 11/27/22 09:05 UA Bilirubin 0 mg/dL Last Edit by Carmelo Velez on 11/27/22 09:05 UA Glucose 0 mg/dL Last Edit by Carmelo Velez on 11/27/22 09:05 Results Reviewed Results Reviewed: Laboratory Last Values Urine pH (Auto) 7.0 11/27/22 08:54 Specific [place] (Auto) 1.010 11/27/22 08:54 Urine Protein (Auto) 15 mg/dL 11/27/22 08:54 Glucose (UA)(Auto) 0 mg/dL 11/27/22 08:54 Urine Blood (Auto) 0 Rohan/uL 11/27/22 08:54 Urine Nitrite (Auto) Negative 11/27/22 08:54 Urine Bilirubin (Auto) 0 mg/dL 11/27/22 08:54 Urine Urobilinogen (Auto) 0.2 mg/dL 11/27/22 08:54 Leukocyte Esterase (Auto) 0 Edmond/uL 11/27/22 08:54 Date of Service: 11/17/22 EXAMINATION: CT ABDOMEN AND PELVIS WITH CONTRAST? FINDINGS: LUNG BASES: The visualized lung bases are unremarkable.? LIVER, GALLBLADDER, AND BILIARY TREE: The liver is normal in size, shape, and attenuation. No focal hepatic lesion or biliary ductal dilatation is present. The gallbladder is unremarkable with no evidence of radiopaque gallstones, gallbladder wall thickening, or obvious pericholecystic inflammatory changes.? PANCREAS: Unremarkable.? SPLEEN: Unremarkable.? ADRENAL GLANDS: Unremarkable.? KIDNEYS AND URETERS: The kidneys are normal in size, shape, and attenuation. No hydronephrosis, hydroureter, or calculi seen. No perinephric stranding. ? BLADDER: Unremarkable.? GASTROINTESTINAL TRACT: The small and large bowel are unremarkable. The appendix is unremarkable.? ABDOMINAL WALL: No significant hernia is appreciated.? LYMPH NODES: Normal. VASCULAR: Unremarkable. PELVIC VISCERA: Prostate and seminal vesicles are unremarkable.? OSSEOUS STRUCTURES: No acute or suspicious osseous abnormalities.? IMPRESSION: No acute findings within the abdomen or pelvis to explain the patient's symptomatology. Assessment & Plan Assessment & Plan (1) Urinary frequency: Code(s): R35.0 - Frequency of micturition (2) Nocturia: Code(s): R35.1 - Nocturia (3) Pelvic pain: Code(s): R10.2 - Pelvic and perineal pain (4) Urinary urgency: Code(s): R39.15 - Urgency of urination (5) Prostatitis: Code(s): N41.9 - Inflammatory disease of prostate, unspecified Plan In office urinalysis results reviewed with the patient today; as noted above. MARIAN; boggy prostate Start Bactrim and prednisone as discussed and prescribed. Continue with naproxen p.r.n.. Discussed bladder triggers/irritants Discussed near future prostate massage if symptoms persist and or worsen Will obtain retroperitoneal ultrasound for further assessment evaluation. Discussed calling office or seeking medical treatment if symptoms worsen or patient experiences fever, chills, and or hematuria Educated to drink plenty of water daily. Follow-up in 1 month with imaging to be completed prior; or sooner with any issues, concerns, and or questions. Orders: Orders US retroperitoneal comp Today R10.2 - Pelvic and perineal pain, R35.0 - Frequency of micturition, R35.1 - Nocturia, R39.15 - Urgency of urination AMB Urinalysis Automated Today Z13.9 - Encounter for screening, unspecified Medications: New sulfamethoxazole-trimethoprim 800-160 mg (Bactrim DS) 1 tab PO BID 14 days 28 tabs 0RF prednisone 20 mg PO DAILY 5 days 5 tabs 0RF N20.0 - Calculus of kidney Patient Instructions: The patient had an opportunity to ask questions regarding the treatment plan. All questions were answered. Physical exam, labs, and imaging were discussed and reviewed in detail. As well as risks, benefits, and discussion of treatment choices. No major barriers to understanding were identified. The patient expressed understanding and agreement with the above treatment plan. The patient was made aware they should contact our office by phone for worsening of their current condition, the appearance of new symptoms, or with any questions or concerns. Compliance is encouraged with any medications and follow up testing that is ordered. It is a privilege to be allowed the opportunity to participate in? your urological care.? Again, if you have any questions or concerns If you have any questions or concerns please do not hesitate to contact me. The office is [phone]. This note is constructed using voice recognition software. While every effort has been made to ensure accuracy electrical checkout mechanic errors may have been included. Yours sincerely, AMBER Lawrence Coding Level of Care Code Est Pt Level 4 (77855) Diagnoses Urinary frequency R35.0 Nocturia R35.1 Pelvic pain R10.2 Urinary urgency R39.15 Prostatitis N41.9
== END 2022-11-27 09:29 | disposition home or self-care (01) ==
LOC: HO.HUSH 08:50
PROVIDERS: Visit Provider Nurse Practitioner Family
DX: R35.0 Frequency of micturition (principal); R35.1 Nocturia; R10.2 Pelvic and perineal pain; R39.15 Urgency of urination; N41.9 Inflammatory disease of prostate, unspecified
CPT/HCPCS: 99214

== ENCOUNTER → 2022-11-27 08:49 | Outpatient (BNVA) | payer OTHER, SELFPAY | PROVIDERS: Visit Provider Nurse Practitioner Family ==

== ENCOUNTER 2023-05-07 10:37 | Outpatient (AMB) | payer OTHER, SELFPAY ==
--- NOTE | 2023-05-07 10:49 | MHC.OFFVIS ---
Intake Intake Visit Reasons: 1Y Follow Up(NS last appt) Intake Note: Patient is Present for Follow Up Urology Medication: Tadalafil Antibiotic Allergies: Amoxicillin, Clindamycin, Penicillin Blood Thinners: none Allergies amoxicillin [AMOXICILLIN] Allergy (Unknown, Verified 11/27/22 10:19) RASH clindamycin [CLINDAMYCIN] Allergy (Unknown, Verified 11/27/22 10:19) rash,itchy, difficulty breathing Pork/Porcine Containing Products [PORK/PORCINE CONTAINING PRODUCTS] Allergy (Unknown, Verified 11/27/22 10:19) UNKNOWN Penicillins [PCN] Adverse Reaction (Intermediate, Verified 11/27/22 10:19) HIVES HPI HPI Comments History of Present Illness Details Hayder is a pleasant Afro-[place]ese male. 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 No prior episodes PFSH Medical History Gram-negative bacteremia Hypertension Sepsis Febrile Elevated lactic acid level Leukocytosis Acute prostatitis Surgical History No pertinent past surgical history Family History Other No family history of cardiac disease Social History Alcohol intake: current Patient Tobacco Use Status: Never used Tobacco service: No Current occupational status: employed Review of Systems Const Denies chills and Denies fever(s) Card Reports no additional complaints and Denies syncope Resp Denies cough GI Denies abdominal pain and Denies heartburn Reports as per HPI and Denies change in libido Neuro Denies syncope Psych Denies change in libido Endo Denies change in libido Physical Exam Const General: cooperative, healthy appearing, comfortable and no acute distress Orientation/consciousness: patient oriented x3 HEENT Face and sinus: Yes normal facial exam Mouth: moist mucous membranes Neck Neck: Yes normal visual inspection, Yes full ROM and Yes trachea midline Chest Chest palpation & inspection: normal inspection of the chest Resp Effort & Inspection: normal respiratory effort, able to speak in complete sentences and no respiratory distress GI Inspection: Yes normal to inspection Back/Spine/Pelvis Cervical Spine: normal cervical lordosis Thoracic/Lumbar Spine: thoracic and lumbar spine normal to inspection Skin General skin exam: no rashes or lesions noted Neuro General: patient oriented x3, gait normal, tone normal and moves all extremities Extrem General: Yes normal to inspection and Yes capillary refill normal Assessment & Plan Assessment & Plan (1) Prostatitis: Code(s): N41.9 - Inflammatory disease of prostate, unspecified (2) Nocturia: Code(s): R35.1 - Nocturia (3) Erectile dysfunction: Code(s): N52.9 - Male erectile dysfunction, unspecified Plan Three-month tele visit Medications: Changed From tadalafil 20 mg PO ONCE 30 days PRN 30 tabs 11RF sexual activity N52.9 - Male erectile dysfunction, unspecified To tadalafil 5 mg PO DAILY 90 tabs 1RF sexual activity 90 days N52.9 - Male erectile dysfunction, unspecified Patient Instructions: Imaging studies, laboratory and physical exam results were discussed and reviewed in detail. No major barriers to patient understanding were identified. An opportunity to ask questions regarding the treatment plan was provided. All questions were answered. The patient expressed understanding and agreement with the above treatment plan. The patient is aware they should contact our office by phone for worsening of their current condition or the appearance of new urologic symptoms. Compliance is encouraged with any medications and followup testing that is ordered. It is a privilege to participate in the urologic care of your patient. If you have any questions or concerns regarding treatment for the above conditions, or other urologic issues, please do not hesitate to contact me. The office telephone contact is [phone]. This note is constructed using voice recognition software. While every effort has been made to ensure accuracy marine fuel dock attendant errors may have been included. Yours sincerely, Dr Duane Hitchcock MD, [facility] - Urology Providers of Expert, Compassionate Care for the Genitourinary System Coding Level of Care Code Est Pt Level 4 (89833) Diagnoses Prostatitis N41.9 Nocturia R35.1 Erectile dysfunction N52.9
== END 2023-05-07 11:30 | disposition home or self-care (01) ==
PROVIDERS: PCP Nurse Practitioner Family; Visit Provider Urology
DX: N41.9 Inflammatory disease of prostate, unspecified (principal); R35.1 Nocturia; N52.9 Male erectile dysfunction, unspecified
CPT/HCPCS: 99214

== ENCOUNTER → 2023-05-07 10:37 | Outpatient (BNVA) | payer OTHER, SELFPAY | PROVIDERS: Visit Provider Urology ==

== ENCOUNTER 2024-01-09 22:45 | Emergency (ER) | payer OTHER, SELFPAY ==
[2024-01-09 22:48] VITALS: BP 156/91; PULSE 65; RESP 16; TEMP 36.5; O2SAT 98; BMI 28.7
[2024-01-09 23:43] LABS: Influenza A PCR NEGATIVE (Negative); Influenza B PCR NEGATIVE (Negative); Resp Syncy Virus RNA Qual PCR NEGATIVE (Negative); SARS COV2 PCR INHOUSE NEGATIVE (Negative)
[2024-01-10] MEDS: Butalb/Acetamin/Caff 50/325/40 TABLET 1 TAB PO (00:07)
--- NOTE | 2024-01-10 00:11 | ED_ITS ---
HPI - General Adult General Chief complaint: General Medical Stated complaint: headaches/body aches Time Seen by Provider: 01/09/24 23:27 Source: patient History of Present Illness ED Provider: woo LIZAMA narrative: Patient has been complaining of right-sided headache since morning with nausea light sensitivity feel tired body ache little congestion no cough no fever no head injury no nausea no vomiting Related Data Home Medications ?Medication ?Instructions ?Recorded ?Confirmed lisinopril 5 mg tablet 1 tab PO DAILY 09/30/21 05/09/22 Previous Rx's ?Medication ?Instructions ?Recorded polyethylene glycol 3350 17 gram 17 g PO DAILY #30 ea 10/02/21 oral powder packet amlodipine 2.5 mg tablet 2.5 mg PO DAILY #30 tabs 09/26/22 cyclobenzaprine 10 mg tablet 10 mg PO Q8H #14 tabs 11/18/22 naproxen 500 mg tablet 500 mg PO BID PRN pain #14 tabs 11/18/22 prednisone 20 mg tablet 20 mg PO DAILY 5 days #5 tabs 11/27/22 sulfamethoxazole 800 1 tab PO BID 14 days #28 tabs 11/27/22 mg-trimethoprim 160 mg tablet (Bactrim DS) tadalafil 5 mg tablet 5 mg PO DAILY sexual activity 90 05/07/23 days #90 tabs ahimxkovdt-uyzjkecognwky-immzcpyy 1 tab PO Q6H PRN haeadace #20 tabs 01/10/24 50 mg-325 mg-40 mg tablet Allergies Allergy/AdvReac Type Severity Reaction Status Date / Time amoxicillin [AMOXICILLIN] Allergy Unknown RASH Verified 01/09/24 22:54 clindamycin [CLINDAMYCIN] Allergy Unknown rash,itchy, Verified 01/09/24 22:54 difficulty breathing Pork/Porcine Containing Allergy Unknown UNKNOWN Verified 01/09/24 22:54 Products [PORK/PORCINE CONTAINING PRODUCTS] Penicillins [PCN] AdvReac Intermediate HIVES Verified 01/09/24 22:54 Review of Systems Review of Systems: Yes all other systems are reviewed and are negative PMFSH Past Medical History Medical History Gram-negative bacteremia Hypertension Sepsis Febrile Elevated lactic acid level Leukocytosis Acute prostatitis Surgical History No pertinent past surgical history Family History Family History Other No family history of cardiac disease Social History Social History Alcohol intake: current Patient Tobacco Use Status: Never used Tobacco Advance Directives: No Advance Directives Information Provided: No Do you have a plan to hurt others: No Plan service: No Current occupational status: employed Physical Exam ED Vital Signs: Vital Signs - 24 hr 01/09/24 22:48 Temperature 97.7 F Pulse Rate 65 Respiratory Rate 16 Blood Pressure 156/91 H Pulse Oximetry 98 Oxygen Delivery Method Room Air BMI result Body Mass Index 28.7 Appearance: Alert. Oriented X3. No acute distress. Eyes: PERRLA, No Nystagmus ENT: Pharynx normal. Oral Mucosa moist no temporal artery tenderness Neck: Normal inspection. Neck supple. CVS: Normal heart rate and rhythm. Pulses normal. Respiratory: No respiratory distress. Equal air entry bilateral, no wheezing/rales/rhonchi Abdomen: Soft and nontender. Bowel sounds are present, no mass palpable, no CVA tenderness Skin: Skin warm and dry. Normal skin color. Normal skin turgor. Extremities: No lower extremity edema. No calf tenderness Neuro: Oriented X 3. No motor deficit. No sensory deficit.No cerebellar signs , cranial nerves II-XII intact Medications Administered Discontinued Medications Generic Name Dose Route Start Last Admin Trade Name Freq PRN Reason Stop Dose Admin Acetaminophen/Butalbital/Caffeine 1 tab 01/09/24 23:58 01/10/24 00:07 Butalb/Acetamin/Caff 50/325/40 Tablet PO 01/09/24 23:59 1 tab ONCE ONE Administration Medical Decision Making Lab Data Labs: Lab Results 01/09/24 Range/Units 23:00 Influenza Type A (PCR) NEGATIVE (Negative) Influenza Type B (PCR) NEGATIVE (Negative) RSV RNA Qual (PCR) NEGATIVE (Negative) SARS-CoV-2 RNA (RT-PCR) NEGATIVE (Negative) Discharge Plan Discharge Clinical Impression: Headache, migraine Patient Disposition: Home, Self-Care Instructions: Migraine Headache (ED) Additional Instructions: Rest at home Take Fioricet 1 tablet every 6 hours as needed for the headache Follow up with your PCP Prescriptions: New ljakatfxiu-egurtzqlfwaio-ooml 50-325-40 mg tablet 1 tab PO Q6H PRN (Reason: haeadace) Qty: 20 0RF No Action lisinopril 5 mg tablet 1 tab PO DAILY polyethylene glycol 3350 17 gram Powder In Packet 17 g PO DAILY Qty: 30 0RF naproxen 500 mg tablet 500 mg PO BID PRN (Reason: pain) Qty: 14 0RF cyclobenzaprine 10 mg tablet 10 mg PO Q8H Qty: 14 0RF amlodipine 2.5 mg tablet 2.5 mg PO DAILY Qty: 30 0RF tadalafil 5 mg tablet 5 mg PO DAILY 90 Days Qty: 90 1RF sulfamethoxazole-trimethoprim [Bactrim DS] 800-160 mg tablet 1 tab PO BID 14 Days Qty: 28 0RF prednisone 20 mg tablet 20 mg PO DAILY 5 Days Qty: 5 0RF Stand Alone Forms: Work/School Release Interventions: ED Discharge Assessment Last Done: 01/10/24 00:13 Print Language: Citizen Of [place]
[2024-01-10 00:13] VITALS: BP 156/91; PULSE 65; RESP 16; TEMP 36.5; O2SAT 98
== END 2024-01-10 00:22 | disposition home or self-care (01) ==
PROVIDERS: Emergency Provider Internal Medicine; PCP Nurse Practitioner Family
DX: G43.909 Migraine, unspecified, not intractable, without status migrainosus (principal); M79.10 Myalgia, unspecified site; R11.2 Nausea with vomiting, unspecified; Z03.818 Encounter for observation for suspected exposure to other biological agents ruled out; Z79.899 Other long term (current) drug therapy
CPT/HCPCS: 0241U; 99283

== ENCOUNTER → 2024-04-10 13:12 | Outpatient (BNVA) | payer SELFPAY | PROVIDERS: PCP Nurse Practitioner Family; Visit Provider Registered Nurse | DX: Z02.79 Encounter for issue of other medical certificate (principal) ==

== ENCOUNTER 2024-06-26 11:23 | Outpatient (REF) | payer OTHER, SELFPAY ==
--- OUTSIDE RECORDS SUMMARY | 2024-06-26 13:08 | XMS_ITS | Encounter Summary ---
Author Organization [facility] Address [address] [place] [address] Care Team Providers Care Automatic Edger Name Role Phone Carmita Joaquin MD Primary Care Provider [phone] Reason for Visit * Reason Onset Date Comments Medication Problem 06/19/2024 Encounter Details Date Type Department Care Team ([facility] st Contact Info) Description 06/19/2024 Telephone [place] [facility] [place] [address] [place] [id number] Carmita Joaquin MD [address] [place] [address] Medication Problem Social History Tobacco Use Types Packs/Day Years Used Date Smoking Tobacco: Never Smokeless Tobacco: Never Alcohol Use Standard Drinks/Week Comments Yes 5 (1 standard drink = 0.6 oz pur e alcohol) Sex and Gender Information Value Date Recorded Sex Assigned at Not on file Legal Sex Male 12:45 PM EST Gender Identity Not on file Sexual Orientation Not on file documented as of this encounter Ordered Prescriptions Prescription Sig Dispense Quantity Refills Last Filled Start Date End Date selenium sulfide (SELSUN) 2.5 % lotion Apply topically 1 (one) time each day for 7 days. 118 mL 06/22/2024 documented in this encounter Progress Notes * Aurelio Smith NP - 06/22/2024 12:55 PM EDT Prescription sent * Isabela Orlando - 06/19/2024 8:28 AM EST Medication Problem: What is the name of the medication patient is having a problem with?: face wash What is the problem?: Patient doesn't know the name medication it for a face wash. It wasn't at thepharmacy Who is calling about the problem? : The patient Is this a NEW medication?: yes How long has the patient been taking this medication? This week Who prescribed this medication for the patient? Leeanna Smith Who is patients PCP?: Carmita Joaquin MD Payor: [facility] / Plan: [facility] [employer] / Product Type: *No Product type* / documented in this encounter Plan of Treatment Upcoming Encounters Date Type Department Care Team (Late st Contact Info) Description 08/12/2024 1:30 PM EDT Appointment [facility] [address] [place] [phone] Melvin Brink MD [address] [address] documented as of this encounter Visit Diagnoses Not on filedocumented in this encounter Additional Health Concerns Assessment Noted Time PHQ-9 Depression Total Score: 0 06/17/19 25 8:00 AM EST documented as of this encounter Care Teams Automatic Edger Relationship Specialty Start Date End Date Carmita Joaquin MD [address] [place] [address] PCP - General Internal Medicine 04/24/21 documented as of this encounter
--- OUTSIDE RECORDS SUMMARY | 2024-06-26 13:09 | XMS_ITS | Encounter Summary ---
Author Organization [facility] Address [id number] [place] [id number] Care Team Providers Care Felt Cutter Name Role Phone Carmita Joaquin MD Primary Care Provider [phone] Reason for Referral * Consultation (Routine) - Denied Specialty Diagnoses / Procedures Referred By Belén grey Referred To Contact Gastroenterology Diagnoses Encounter for screening for malignant neoplasm of colon Aurelio Smith NP [address] [place] [address] Phone: tel: fax: Gastroenterology - [address] [place] [phone] Phone: tel: fax: Referral ID Status Reason Start Date Expiration Date V isits Requested Visits Authorized [id number] Denied Specialty Services Required 06/16/2024 06/16/2025 1 0 Reason for Visit * Reason Comments Follow-up Follow up for BP, LI PID , DM Encounter Details Date Type Department Care Team (Late st Contact Info) Description 06/16/2024 8:00 AM EST Office Visit Adult Medicine [address] [phone] Aurelio Smith NP [address] [place] [address] 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) (Primary Dx); Essential hypertension; Hyperlipidemia, unspecified hyperlipidemia type; Encounter for screening for malignant neoplasm of colon; Need for hepatitis C screening test Social History Tobacco Use Types Packs/Day Years [...] on file documented as of this encounter Last Filed Vital Signs Vital Sign Reading Time Taken Comments Blood Pressure 142/96 06/16/2024 8:37 AM EST Pulse 72 06/16/2024 8:13 AM EST Temperature 35.8 ??C (96.4 ??F) 06/16/2024 8:13 AM ES T Respiratory Rate 16 06/16/2024 8:13 AM EST Oxygen Saturation 98% 06/16/2024 8:13 AM EST Inhaled Oxygen Concentration - - Weight 90.1 kg (198 lb 9.6 oz) 06/16/2024 8:13 A M EST Height 177.8 cm (5' 10 ) 06/16/2024 8:13 AM EST Body Mass Index 28.5 06/16/2024 8:13 AM EST documented in this encounter Ordered Prescriptions Prescription Sig Dispense Quantity Refills Last Filled Start Date End Date glucose blood test stripIndications:T ype 2 diabetes with circulatory disorder causing erectile dysfunction (CMS/HCC) 1 each by Other route 1 (one) time each day. 100 each 06/16/2024 amLODIPine (NORVASC) 2.5 mg tabletIndications: Essential hypertension Take 1 tablet (2.5 mg total) by mouth 1 (one) time each day. 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 200 each 06/16/2024 06/16/2024 documented in this encounter Progress Notes * Aurelio Smith NP - 06/16/2024 8:00 AM ESTAssociated Problem(s): Essential hypertension Hayder BP is not control. Patient states that he ran out of blood pressure medication and has not taken his medication for over 2 weeks. Hence why his blood pressure is elevated. Patient is to Continue amlodipine 2.5 mg. We had a long discussion about taking medication as prescribed. I also recommend patient stop of her automatic refills with his pharmacy. Review medication, side effects ans potential future medication changes. If BP is still elevated at next office visit, I will Increase amlodipine to 5 mg daily. Patient is advised to check BP at home and maintain a BP log. He is to call the office if blood pressure more than 140/90, more than a couple of times. Patient is recommended lifestyle changes including 2 g sodium/Dash Diet and regular exercise as tolerated. Orders: amLODIPine (NORVASC) 2.5 mg tablet; Take 1 tablet (2.5 mg total) by mouth 1 (one) time each day. Basic metabolic panel; Future Hemoglobin A1c; Future HIV 1,2 antibody, p24 antigen with reflex to differentiation; Future * Aurelio Smith NP - 06/16/2024 8:00 AM ESTAssociated Problem(s): Hyperlipidemia Last LDL 162. Cardiovascular risk and specific lipid/LDL goals reiterated. Lifestyle modification was discussed. I recommend exercise 3-4 times per week on average 30 minutes each at moderate to vigorous intensity. Dietary change include: Incorporation of fruits and vegetable whole-grain low-fat dairy products, poultry, fish and legumes. limitation of sugar sweetened beverage other sweets and redmeats. Reduce calorie from saturated and trans fat. 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 Patient has maintain a low carb diet to optimize blood sugar levels (avoid sweet drinks/snacks, excess bread, pasta intake and replace red meat with chicken and fish and increase salad intake). Attempt exercise daily or at least 3 times a week for 30 min. Complications associated with uncontrolled diabetes includes, but are not limited to an increased risk of cardiovascular disease, retinopathy, neuropathy, renal disease, increased risk of infections with open wounds and amputations. Orders: Basic metabolic panel; Future Hemoglobin A1c; Future glucose blood test strip; 1 each by Other route 1 (one) time each day. lancets lancets; Check blood sugar 4 times a day or as directed. HIV 1,2 antibody, p24 antigen with reflex to differentiation; Future Diabetes Foot Exam * Aurelio Smith NP - 06/16/2024 8:00 AM EST Images from the original note were not included. Patient Education High Blood Pressure: Care Instructions Overview It's normal for blood pressure to go up and down throughout the day. But if it stays up, you have high blood pressure. Another name for high blood pressure is hypertension. For diagnosis, the top number may be 130 to 140 or higher. The bottom number may be 80 to 90 or higher. Despite what a lot of people think, high blood pressure usually doesn't cause headaches or make youfeel dizzy or lightheaded. It usually has no symptoms. But it does increase your risk of stroke, heart attack, and other problems. You and your doctor will talk about your risks of these problems based on your blood pressure. Your doctor will give you a goal for your blood pressure. Your goal will be based on your health and your age. Lifestyle changes, such as eating healthy and being active, are always important to help lower blood pressure. You might also take medicine to reach your blood pressure goal. Follow-up care is a paredes part of your treatment and safety. Be sure to make and go to all appointments, and call your doctor if you are having problems. It's also a good idea to know your test resultsand keep a list of the medicines you take. How can you care for yourself at home? Medical treatment If you stop taking your medicine, your blood pressure will go back up. You may take one or more types of medicine to lower your blood pressure. Be safe with medicines. Take your medicine exactly as prescribed. Call your doctor if you think you are having a problem with your medicine. Talk to your doctor before you start taking aspirin every day. Aspirin can help certain people lower their risk of a heart attack or stroke. But taking aspirin isn't right for everyone, because it can cause serious bleeding. See your doctor regularly. You may need to see the doctor more often at first or until your blood pressure comes down. If you are taking blood pressure medicine, talk to your doctor before you take decongestants or anti-inflammatory medicine, such as ibuprofen. Some of these medicines can raise blood pressure. Learn how to check your blood pressure at home. Lifestyle changes Stay at a healthy weight. This is especially important if you put on weight around the waist. Losing even 10 pounds can help you lower your blood pressure. If your doctor recommends it, get more exercise. Walking is a good choice. Bit by bit, increase theamount you walk every day. Try for at least 30 minutes on most days of the week. You also may want to swim, bike, or do other activities. Avoid or limit alcohol. Talk to your doctor about whether you can drink any alcohol. Try to limit how much sodium you eat to less than 2,300 milligrams (mg) a day. Your doctor may ask you to try to eat less than 1,500 mg a day. Eat plenty of fruits (such as bananas and oranges), vegetables, legumes, whole grains, and low-fat dairy products. Lower the amount of saturated fat in your diet. Saturated fat is found in animal products such as milk, cheese, and meat. Limiting these foods may help you lose weight and also lower your risk for heart disease. Do not smoke. Smoking increases your risk for heart attack and stroke. If you need help quitting, talk to your doctor about stop-smoking programs and medicines. These can increase your chances of quitting for good. When should you call for help? Call 911 anytime you think you may need emergency care. This may mean having symptoms that suggestthat your blood pressure is causing a serious heart or blood vessel problem. Your blood pressure may be over 180/120. For example, call 911 if: You have symptoms of a heart attack. These may include: Chest pain or pressure, or a strange feeling in the chest. Sweating. Shortness of breath. Nausea or vomiting. Pain, pressure, or a strange feeling in the back, neck, jaw, or upper belly or in one or both shoulders or arms. Lightheadedness or sudden weakness. A fast or irregular heartbeat. You have symptoms of a stroke. These may include: Sudden numbness, tingling, weakness, or loss of movement in your face, arm, or leg, especially on only one side of your body. Sudden vision changes. Sudden trouble speaking. Sudden confusion or trouble understanding simple statements. Sudden problems with walking or balance. A sudden, severe headache that is different from past headaches. You have severe back or belly pain. Do not wait until your blood pressure comes down on its own. Get help right away. Call your doctor now or seek immediate care if: Your blood pressure is much higher than normal (such as 180/120 or higher), but you don't have symptoms. You think high blood pressure is causing symptoms, such as: Severe headache. Blurry vision. Watch closely for changes in your health, and be sure to contact your doctor if: Your blood pressure measures higher than your doctor recommends at least 2 times. That means the top number is higher or the bottom number is higher, or both. You think you may be having side effects from your blood pressure medicine. Where can you learn more? Scan the ScholarPRO code or Go to https://www.[employer]/sugar Enter X567 in the search box to learn more about High Blood Pressure: Care Instructions. Current as of: February 05, 2023 Content Version: 14.2 ?? 2023 [employer]. Care instructions adapted under license by your healthcare professional. If you have questions about a medical condition or this instruction, always ask your healthcare professional. [employer], [facility] disclaims any warranty or liability for your use of this information. Patient Education DASH Diet: Care Instructions Your Care Instructions The DASH diet is an eating plan that can help lower your blood pressure. DASH stands for Dietary Approaches to Stop Hypertension. Hypertension is high blood pressure. The DASH diet focuses on eating foods that are high in calcium, potassium, and magnesium. These nutrients can lower blood pressure. The foods that are highest in these nutrients are fruits, vegetables, low-fat dairy products, nuts, seeds, and legumes. But taking calcium, potassium, and magnesium supplements instead of eating foods that are high in those nutrients does not have the same effect. The DASH diet also includes whole grains, fish, and poultry. The DASH diet is one of several lifestyle changes your doctor may recommend to lower your high blood pressure. Your doctor may also want you to decrease the amount of sodium in your diet. Lowering sodium while following the DASH diet can lower blood pressure even further than just the DASH diet alone. Follow-up care is a paredes part of your treatment and safety. Be sure to make and go to all appointments, and call your doctor if you are having problems. It's also a good idea to know your test resultsand keep a list of the medicines you take. How can you care for yourself at home? Following the DASH diet Eat 4 to 5 servings of fruit each day. A serving is 1 medium-sized piece of fruit, 1/2 cup raw or canned fruit, 1/4 cup dried fruit, or 4 ounces (1/2 cup) of fruit juice. Choose fruit more often thanfruit juice. Eat 4 to 5 servings of vegetables each day. A serving is 1 cup of lettuce or raw leafy vegetables, 1/2 cup of chopped or cooked vegetables, or 4 ounces (1/2 cup) of vegetable juice. Choose vegetablesmore often than vegetable juice. Get 2 to 3 servings of low-fat and fat-free dairy each day. A serving is 8 ounces of milk, 1 cup ofyogurt, or 1?? ounces of cheese. Eat 6 to 8 servings of grains each day. A serving is 1 slice of bread, 1 ounce of dry cereal, or 1/2 cup of cooked rice, pasta, or cooked cereal. Try to choose whole-grain products as much as possible. Limit lean meat, poultry, and fish to 6 ounces or less each day. One egg counts as 1 ounce. Eat 4 to 5 servings of nuts, seeds, and legumes (cooked dried beans, lentils, and split peas) each week. A serving is 1/3 cup of nuts, 2 tablespoons of seeds, 2 tablespoons of peanut butter, or 1/2 cup of cooked beans or peas. Limit fats and oils to 2 to 3 servings each day. A serving is 1 teaspoon of vegetable oil or 2 tablespoons of salad dressing. Limit sweets and added sugars to 5 servings or less a week. A serving is 1 tablespoon jelly or jam,1/2 cup sorbet, or 1 cup of lemonade. Eat less than 2,300 milligrams (mg) of sodium a day. If you limit your sodium to 1,500 mg a day, you can lower your blood pressure even more. Be aware that all of these are the suggested number of servings for people who eat 1,800 to 2,000 calories a day. Your recommended number of servings may be different if you need more or fewer calories. Tips for success Start small. Make small changes, and stick with them. Once those changes become habit, add a few more changes. Try some of the following: Make it a goal to eat a fruit or vegetable at every meal and at snacks. This will make it easy to get the recommended amount of fruits and vegetables each day. Try yogurt topped with fruit and nuts for a snack or healthy dessert. Add lettuce, tomato, cucumber, and onion to sandwiches. Have a variety of cut-up vegetables with a low-fat dip as an appetizer instead of chips and dip. Sprinkle sunflower seeds or chopped almonds over salads. Or try adding chopped walnuts or almonds to cooked vegetables. Try some vegetarian meals using beans and peas. Add garbanzo or kidney beans to salads. Make burritos and tacos with mashed clark beans or black beans. Where can you learn more? Scan the ScholarPRO code or Go to https://www.[employer].net/sugar Enter H967 in the search box to learn more about DASH Diet: Care Instructions. Current as of: January 02, 2023 Content Version: 14.2 ?? 2023 [employer] [facility] [employer]. Care instructions adapted under license by your healthcare professional. If you have questions about a medical condition or this instruction, always ask your healthcare professional. [employer], [employer] disclaims any warranty or liability for your use of this information. * Aurelio Smith NP - 06/16/2024 8:00 AM EST PATIENT'S PCP: Carmita Joaquin MD LAST VISIT IN THIS DEPARTMENT: 03/03/2024 Hayder Carson is a 49 y.o. (: 1975) male who presents today for chronic medical and medication management. MICHAELA Singletary is a 48-year gentleman that is here for chronic medical management and medication management. He has a relevant past medical history of type 2 diabetes, obesity, hyperlipidemia, gout, hypertension, enlarged prostate and erectile dysfunction. Last A1c 6.4% three months ago. He is not on any antidiabetic medication. Patient has been managinghis blood glucose with diet. He does not check his blood sugar. He denies increased thirst, hunger or urination. Patient is due for diabetic eye exam. Advised patient to schedule appointment with eye doctor. Blood pressure in the office today was 146/94. Recheck was 144/96. Patient was asymptomatic. He is on amlodipine 2.5 mg daily. Per patient he has been out of his medication for over 2 weeks. Today came in for refill. Today he reported no chest pain on exertion, no dyspnea on exertion, no swelling of ankles, no palpitation, sweating, dizziness, abdominal pain or tearing back pain. He also denied TIAs, headache, vision changes, or sensory and motor deficit. Last Total Cholesterol 248, HDL 50, LDL was 162. Patient is not on a statin. CARDIAC RISK FACTORS: Obesity, hyperlipidemia, hypertension, diabetes. Family history of diabetes Health Maintenance: Order placed for colonoscopy today. Patient is up-to-date with diabetic foot check. Review Of System Review of Systems Constitutional: Negative. Respiratory: Negative. Cardiovascular: Negative. Gastrointestinal: Negative. Endocrine: Negative. Genitourinary: Negative. Musculoskeletal: Negative. Skin: Negative. Neurological: Negative. Hematological: Negative. 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) 09/10/2018 Essential hypertension 07/30/2018 Cervical spondylosis with radiculopathy 06/17/2018 Neuroforaminal stenosis of cervical spine 06/17/2018 Overweight (BMI 25.0-29.9) 05/26/2018 Past Surgical History: Procedure Laterality Date OTHER SURGICAL HISTORY PROCEDURE: DENIES PREVIOUS SURGERY SOCIAL HISTORY: Social History Tobacco Use Smoking status: Never Smokeless tobacco: Never Substance Use Topics Alcohol use: Yes Alcohol/week: 5.0 - 7.0 standard drinks of alcohol FAMILY HISTORY: Family History Problem Relation Name Age of Onset Other (Other: [facility]) Father in s from [place] Other (Other: no medical history) Mother Diabetes Maternal Grandmother Family Status Relation Name Status Father Mother Alive MGM Sister Alive Brother Alive MGF unknown PGM unknown Other PGF unknown Other No partnership data on file Social Influencer of Health (SIOH): The following portions of the patient's chart were reviewed in this encounter and updated as appropriate: OBJECTIVES Vitals: 06/16/24 0813 06/16/24 0837 BP: (!) 146/94 (!) 142/96 BP Location: Left arm Patient Position: Sitting Pulse: 72 Resp: 16 Temp: 35.8 ??C (96.4 ??F) TempSrc: Temporal SpO2: 98% Weight: 90.1 kg (198 lb 9.6 oz) Height: 1.778 m (70 ) Body mass index is 28.5 kg/m??. BMI is greater than 25.0 (above the normal range) - see Plan BP Readings from Last 5 Encounters: 06/16/24 (!) 142/96 01/28/24 (!) 150/92 08/28/23 (!) 138/90 05/23/23 136/80 12/08/23 120/76 Wt Readings from Last 5 Encounters: 06/16/24 0813 90.1 kg (198 lb 9.6 oz) 01/28/24 0950 93.8 kg (206 lb 12.8 oz) 08/28/23 0803 92.6 kg (204 lb 3.2 oz) 05/23/23 0812 94.7 kg (208 lb 12.8 oz) 03/22/23 0811 93.3 kg (205 lb 9.6 oz) Allergies Allergen Reactions Amoxicillin Penicillins Sulfa (Sulfonamide Antibiotics) Sulfa Drugs Active Medications: Current Outpatient Medications Medication Instructions amLODIPine (NORVASC) 2.5 mg, oral, Daily Autolet lancing device 1 each, Other, Blood Glucose Monitoring Suppl (ONE TOUCH ULTRA SYSTEM KIT) w/Device Kit Use to test blood sugar once daily blood glucose control, normal (Glucose Control) solution 1 each, Other, Blood Glucose Calibration (OT ULTRA/FASTTK CNTRL SOLN) Solution Use with each new container of test strips glucose blood test strip 1 each, Other, Daily lancets lancets Check blood sugar 4 times a day or as directed. Physical Exam Vitals reviewed. Constitutional: Appearance: Normal appearance. Cardiovascular: Rate and Rhythm: Normal rate and regular rhythm. Pulses: Normal pulses. Dorsalis pedis pulses are 2+ on the right side and 2+ on the left side. Posterior tibial pulses are 2+ on the right side and 2+ on the left side. Heart sounds: Normal heart sounds. Pulmonary: Effort: Pulmonary effort is normal. Breath sounds: Normal breath sounds. Abdominal: General: Bowel sounds are normal. Palpations: Abdomen is soft. Musculoskeletal: General: Normal range of motion. Cervical back: Normal range of motion and neck supple. Feet: Right foot: Skin integrity: Skin integrity normal. Toenail Condition: Right toenails are normal. Left foot: Skin integrity: Skin integrity normal. Toenail Condition: Left toenails are normal. Comments: DIABETIC FOOT EXAM: Negative for neuropathy. No loss of peripheral sensation with monofilament, No ulcers, No fungal infection, No foot deformities and Calluses. Skin: General: Skin is warm and dry. Neurological: General: No focal deficit present. Mental Status: He is alert. Mental status is at baseline. IMAGING No Pertinent Imaging LABORATORY: CBC: No results found for: WBC , HGB , HCT , MCV , PLT CMP: Lab Results Component Value Date NA 138 03/02/2024 K 4.3 03/02/2024 CL 104 03/02/2024 CO2 27 03/02/2024 GLUCOSE 117 (H) 03/02/2024 BUN 13 03/02/2024 CREATININE 1.31 (H) 03/02/2024 CALCIUM 9.6 03/02/2024 EGFR 67 03/02/2024 A1c/Microalbuminuria/LDL/GFR: Lab Results Component Value Date HGBA1C 6.4 03/02/2024 Lab Results Component Value Date MICROALBUR <5.0 03/02/2024 CREATININE 1.31 (H) 03/02/2024 MICROALBCREA <3 03/02/2024 Lipids: Lab Results Component Value Date CHOL 248 (A) 08/28/2023 TRIG 180 (A) 08/28/2023 HDL 50 08/28/2023 TSH: No results found for: TSH No results found for: LDLCALC Assessment & Plan 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 Patient has maintain a low carb diet to optimize blood sugar levels (avoid sweet drinks/snacks, excess bread, pasta intake and replace red meat with chicken and fish and increase salad intake). Attempt exercise daily or at least 3 times a week for 30 min. Complications associated with uncontrolled diabetes includes, but are not limited to an increased risk of cardiovascular disease, retinopathy, neuropathy, renal disease, increased risk of infections with open wounds and amputations. Orders: Basic metabolic panel; Future Hemoglobin A1c; Future glucose blood test strip; 1 each by Other route 1 (one) time each day. lancets lancets; Check blood sugar 4 times a day or as directed. HIV 1,2 antibody, p24 antigen with reflex to differentiation; Future Diabetes Foot Exam Essential hypertension Hayder BP is not control. Patient states that he ran out of blood pressure medication and has not taken his medication for over 2 weeks. Hence why his blood pressure is elevated. Patient is to Continue amlodipine 2.5 mg. We had a long discussion about taking medication as prescribed. I also recommend patient stop of her automatic refills with his pharmacy. Review medication, side effects ans potential future medication changes. If BP is still elevated at next office visit, I will Increase amlodipine to 5 mg daily. Patient is advised to check BP at home and maintain a BP log. He is to call the office if blood pressure more than 140/90, more than a couple of times. Patient is recommended lifestyle changes including 2 g sodium/Dash Diet and regular exercise as tolerated. Orders: amLODIPine (NORVASC) 2.5 mg tablet; Take 1 tablet (2.5 mg total) by mouth 1 (one) time each day. Basic metabolic panel; Future Hemoglobin A1c; Future HIV 1,2 antibody, p24 antigen with reflex to differentiation; Future Hyperlipidemia, unspecified hyperlipidemia type Last LDL 162. Cardiovascular risk and specific lipid/LDL goals reiterated. Lifestyle modification was discussed. I recommend exercise 3-4 times per week on average 30 minutes each at moderate to vigorous intensity. Dietary change include: Incorporation of fruits and vegetable whole-grain low-fat dairy products, poultry, fish and legumes. limitation of sugar sweetened beverage other sweets and redmeats. Reduce calorie from saturated and trans fat. Orders: Basic metabolic panel; Future Hemoglobin A1c; Future HIV 1,2 antibody, p24 antigen with reflex to differentiation; Future Encounter for screening for malignant neoplasm of colon Orders: Ambulatory referral to Gastroenterology; Future Need for hepatitis C screening test Orders: Hepatitis C antibody; Future FOLLOW-UP: Follow up in about 4 months (around 10/16/2024) for Please book with PCP. Health Maintenance Due Topic Date Due Diabetes: Annual Retina Eye Exam Never done Colorectal Cancer Screening: Colonoscopy Never done HIV Screening Never done Hepatitis C Screening Never done Social Influencers of Health Screening Never done Aurelio Smith NP ADULT MEDICINE [address] [phone] Today's documentation was made using voice recognition software.This note may contain grammatical errors secondary to this software. documented in this encounter Plan of Treatment Upcoming Encounters Date Type Department Care Team (Late st Contact Info) Description 08/12/2024 1:30 PM EDT Appointment [facility] Endoscopy [address] [place] [address] Melvin Brink MD [address] [address] Scheduled Referrals Name Type Priority Associated Diagnoses Order Schedule Ambulatory referral to Gastroenterology Outpatient Referral Routine Encounter for screening for malignant neoplasm of colon 1 Occurrences starting 06/16/2024 until 06/16/2025 documented as of this encounter Results * HIV 1,2 antibody, p24 antigen with reflex to differentiation (06/19/2024 8:22 AM EST) Pathologist [facility] HIV Combo AB/AG Negative Negative LAB CHEMISTRY METHOD 06/19/2024 11:04 AM EST [facility] Blood Venous blood specimen / Unknown Venipuncture / Unknown 06/19/2024 8:22 AM EST 06/19/2024 8:22 AM EST Narrative [facility] - 06/19/2024 11:04 AM EST This assay is a 4th generation assay allowing for earlier detection of HIV infection by detecting the presence of the HIV-1 p24 antigen as well as the traditional antibodies to HIV type 1 (including group O) and type 2. ??Use of a 4th generation assay is the current CDC recommendation for HIV screening. Aurelio Smith NP LAB BLOOD ORDERABLES Final R esult Performing Organization Address City/[facility]/ZIP Co de Phone Number [facility] [address] [place] [address], * Hepatitis C antibody (06/19/2024 8:22 AM EST) Pathologist [facility] Hepatitis C Antibody Negative Negative LAB CHEMISTRY METHOD 06/19/2024 11:04 AM EST [facility] Blood Venous blood specimen / Unknown Venipuncture / Unknown 06/19/2024 8:22 AM EST 06/19/2024 8:22 AM EST Aurelio Smith NP LAB BLOOD ORDERABLES Final R esult [facility] [address] [place] [address], [place] [phone] * (ABNORMAL) Hemoglobin A1c (06/19/2024 8:22 AM EST) [facility] Hemoglobin A1C 6.6(H) <6.5 % LAB CHEMISTRY METHOD 06/19/2024 11:06 AM EST [facility] Mean Bld Glu Estim. 143 mg/dL LAB CHEMISTRY METHOD 06/19/2024 11:06 AM [facility] Blood Venous blood specimen / Unknown Venipuncture / Unknown 06/19/2024 8:22 AM EST 06/19/2024 8:22 AM EST Aurelio Smith NP LAB BLOOD ORDERABLES Final R esult [facility] [address] [place] [address], * (ABNORMAL) Basic metabolic panel (06/19/2024 8:22 AM EST) [facility] Sodium 139 133 - 145 mmol/L LAB CHEMISTRY METHOD 06/19/2024 10:15 AM [facility] Potassium 4.5 3.5 - 5.5 mmol/L LAB CHEMISTRY METHOD 06/19/2024 10:15 AM [facility] Chloride 105 96 - 110 mmol/L LAB CHEMISTRY METHOD 06/19/2024 10:15 AM [facility] CO2 26 21 - 32 mmol/L LAB CHEMISTRY METHOD 06/19/2024 10:15 AM [facility] Anion Gap 8 3 - 11 LAB CHEMISTRY METHOD 06/19/2024 10:15 AM [facility] Glucose 134(H) 70 - 100 mg/dL LAB CHEMISTRY METHOD 06/19/2024 10:15 AM [facility] BUN 12 5 - 25 mg/dL LAB CHEMISTRY METHOD 06/19/2024 10:15 AM EST [facility] Creatinine 1.22 0.70 - 1.30 mg/dL LAB CHEMISTRY METHOD 06/19/2024 10:15 AM EST [facility] eGFR 73 >=60 mL/min/1. 73m2 LAB CHEMISTRY METHOD 06/19/2024 10:15 AM EST [facility] Comment:Calculation based on the??Chronic Kidney Disease Epidemiology Collaboration (CKD-EPI) equation refit??without adjustment for race. 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 Essential hypertension Unspecified essential hypertension Hyperlipidemia, unspecified hyperlipidemia type Encounter for screening for malignant neoplasm of colon Need for hepatitis C screening test Special screening examination for other specified viral diseases documented in this encounter Discontinued Medications Medication Sig Discontinue Reason Start Date End Da te Autolet lancing device Lancet Devices (One Touch Delica Lancing Dev) Misc Use to test blood sugar once daily 05/08/2021 06/16/2024 ONETOUCH DELICA LANCETS MISC OneTouch Delica Lancets Fine Misc Use to test blood sugar once daily 05/08/2021 06/16/2024 amLODIPine (NORVASC) 2.5 mg tablet Take 1 Tablet by mouth daily. Reorder 01/28/2024 06/16/2024 glucose blood test strip Glucose Blood (ONE TOUCH ULTRA TEST STRIPS) Strip Use to test blood sugar once daily Reorder 05/08/2021 06/16/2024 documented as of this encounter Orders Health Maintenance Count Last Ordered Date Firs t Ordered Date HM DIABETES FOOT EXAM 1 06/16/2024 documented in this encounter Additional Health Concerns Assessment Noted Time PHQ-9 Depression Total Score: 0 06/17/19 25 8:00 AM EST documented as of this encounter Care Teams Felt Cutter Relationship Specialty Start Date End Date Carmita Joaquin MD [address] [place] [address] PCP - General Internal Medicine 04/24/21 documented as of this encounter
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
--- OUTSIDE RECORDS SUMMARY | 2024-06-26 13:09 | XMS_ITS | Clinical Summary ---
Author Organization [address] Address [address] [place] [phone] Phone Care Team Providers Care Band Saw Operator Name Role Phone Carmita Joaquin MD Primary Care Provider [phone] Allergies Active Allergy Reactions Criticality Noted Date Comments Amoxicillin 07/30/2018 Penicillins 03/12/2016 Sulfa (Sulfonamide Antibiotics) 07/15 Sulfa Drugs Medications blood glucose control, normal (Glucose Control) solution 1 each by Other route. Blood Glucose Calibration (OT ULTRA/FASTTK CNTRL SOLN) Solution Use with each new container of test strips Active Autolet lancing device 1 each by Other route. Blood Glucose Monitoring Suppl (ONE TOUCH ULTRA SYSTEM KIT) w/Device Kit Use to test blood sugar once daily Active amLODIPine (NORVASC) 2.5 mg tabletIndicatio ns:Essential hypertension Take 1 tablet (2.5 mg total) by mouth 1 (one) time each day. 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 100 each 5 06/17/19 25 Active lancets 30 gauge misc CHECK BLOOD SUGAR 4 TIMES A DAY OR DIRECTED. One touch Ultra 400 each 5 06/17/19 25 Active selenium sulfide (SELSUN) 2.5 % lotion Apply topically 1 (one) time each day for 7 days. 118 mL 06/23/19 25 2024 Active amLODIPine (NORVASC) 2.5 mg tablet Take 1 Tablet by mouth daily. 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 200 each 5 06/17/19 25 2024 Discontinued Active Problems Problem Noted Date Diagnosed Date Gout 08/28/2023 Cystitis 11/26/2022 Enlarged prostate 11/26/2022 Prostatitis 11/26/2022 Hyperlipidemia 04/21/2019 Assessment & Plan (06/16/2024 6:58 PM EST): Last LDL 162. Cardiovascular risk and specific lipid/LDL goals reiterated. Lifestyle modification was discussed. I recommend exercise 3-4 times per week on average 30 minutes each at moderate to vigorous intensity. Dietary change include: Incorporation of fruits and vegetable whole-grain low-fat dairy products, poultry, fish and legumes. limitation of sugar sweetened beverage other sweets and red meats. Reduce calorie from saturated and trans fat. 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 Patient has [...] differentiation; Future Diabetes Foot Exam Essential hypertension 07/30/2018 Assessment & Plan (06/16/2024 6:59 PM EST): Hayder BP is not control. 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) (Primary Dx); Essential hypertension; Hyperlipidemia, unspecified hyperlipidemia type; Encounter for screening for malignant neoplasm of colon; Need for hepatitis C screening test from Last 3 Months Immunizations Name Administration Dates Next Due Tdap Tetanus diptheria acell ular pertussis (Boostrix; Adacel) 7yo and older 05/26/2018 Surgical History Surgery Date Site/Laterality Comments OTHER SURGICAL HISTORY PROCEDURE: DENIES PREVIOUS SURGERY Medical History Medical History Date Comments Colicky RLQ abdominal pain 03/12/2016 DX:Co licky RLQ abdominal pain Cervical spondylosis with radiculopathy 06/18/19 DX:Cervical spondylosis with radiculopathy; COMMENT: S/p xray 06/2018 Neuroforaminal stenosis of c ervical spine 06/17/2018 DX:Neuroforaminal stenosis o f cervical spine; COMMENT: S/p xray 06/2018 Type 2 diabetes with circula tory disorder causing erectile dysfunction (CMS/HCC) 09/10/2018 DX:Type 2 diabetes with circ ulatory disorder causing erectile dysfunction (HCC) Erectile dysfunction 09/10/2018 DX:Erectile dysfunction Family History Medical History Relation Name Comments Other: GSW Father in fr om GSW Diabetes Maternal Grandmother Other: no medical history Mother Relation Name Status Comments Brother Alive Father Maternal Grandfather unknown Maternal Grandmother Mother Alive Paternal Grandfather unknown Other Paternal Grandmother unknown Other Sister Alive Social History Tobacco Use Types Packs/Day Years Used Date Smoking Tobacco: Never Smokeless Tobacco: Never Alcohol Use Standard Drinks/Week Comments Yes 5 (1 standard drink = 0.6 oz pur e alcohol) Sex and Gender Information Value Date Recorded Sex Assigned at Not on file Legal Sex Male 12:45 PM EST Gender Identity Not on file Sexual Orientation Not on file Obstetrics History Last Filed Vital Signs Vital Sign Reading [...] Mass Index 28.5 06/16/2024 8:13 AM EST Plan of Treatment Upcoming Encounters Date Type Department Care Team (Late st Contact Info) Description 08/12/2024 1:30 PM EDT Appointment [facility] Endoscopy [address] [place] [id number] Melvin Brink MD [address] [address] Health Maintenance Due Date Last Done Comments Diabetes: Annual Retina Eye Exam 1985 Colorectal Cancer Screening: Colonoscopy 03/13/2022 Social Influencers of Health Screening 03/13/2022 Diabetes: Blood Sugar Control Test (HGBA1C) 12/20/2024 06/19/2024, 03/02/2024, 08/28/2023 Diabetes: Annual Urine Albumin-Creatinine Ratio (uACR) 03/02/2025 03/02/2024, 11/26/2022 Depression Screening 06/16/2025 06/16/2024 Diabetes: Annual Foot Exam 06/16/2025 06/16/2024 Diabetes: Annual GFR (Glomerular Filtration Rate) 06/19/2025 06/19/2024, 03/02/2024, 08/28/2023, Additional history exists Hypertension/CHF/CAD Annual BMP Blood Test 06/19/2025 06/19/2024, 03/02/2024, 08/28/2023, Additional history exists DTaP,Tdap,and Td Vaccines (2 - Td or Tdap) 05/26/2028 05/26/2018 Cholesterol Screening (Lipid Panel) 08/27/2028 08/28/2023, 08/28/2023 COVID-19 Vaccine Discontinued 09/29/2020, 09/07/2020 HIV Screening Completed 06/19/2024 Hepatitis C Screening Completed 06/19/2024 HIB Vaccines Aged Out No longer eligi ble based on patient's age to complete this topic HPV Vaccines Aged Out No longer eligi ble based on patient's age to complete this topic Hepatitis A Vaccines Aged Out No long er eligible based on patient's age to complete this topic Hepatitis B Vaccines Discontinued IPV Vaccines Aged Out No longer eligi ble based on patient's age to complete this topic Influenza Vaccine Discontinued MMR Vaccines Aged Out No longer eligi ble based on patient's age to complete this topic Meningococcal ACWY Vaccine Aged Out N o longer eligible based on patient's age to complete this topic Meningococcal B Vacine Aged Out No lo nger eligible based on patient's age to complete this topic Pneumococcal Vaccine: Pediatrics (0 to 5 Years) and At-Risk Patients (6 to 64 Years) Discontinued RSV Immunization Patients Under 20 months Aged Out No longer eligible based on patient's age to complete this topic Varicella Vaccines Aged Out No longer eligible based on patient's age to complete this topic Procedures Procedure Name Priority Date/Time Associated Diagnosis Comments HEPATITIS C ANTIBODY Routine 06/19/2024 8:22 AM EST Need for hepatitis C screening test HEMOGLOBIN A1C Routine 06/19/2024 8:22 AM EST 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) Essential hypertension Hyperlipidemia, unspecified hyperlipidemia type BASIC METABOLIC PANEL Routine 06/19/2024 8:22 AM EST 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) Essential hypertension Hyperlipidemia, unspecified hyperlipidemia type HIV 1, 2 ANTIBODY, P24 ANTIGEN WITH REFLEX TO DIFFERENTIATION Routine 06/19/2024 8:22 AM EST 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) Essential hypertension Hyperlipidemia, unspecified hyperlipidemia type MICROALBUMIN CREATININE URINE RATIO Routine 03/02/2024 9:08 AM EST Pityriasis versicolor Essential hypertension, malignant Benign enlargement of prostate Mixed hyperlipidemia LIPID PANEL Routine 08/28/2023 from Last 3 Months or Most Recently Relevant to Health Maintenance Results * Hepatitis C antibody (06/19/2024 8:22 AM EST) Hepatitis C Antibody Negative Negative LAB CHEMISTRY METHOD 06/19/2024 11:04 AM EST [facility] Blood Venous blood specimen / Unknown Venipuncture / Unknown 06/19/2024 8:22 AM EST 06/19/2024 8:22 AM EST Aurelio Smith CEMENT [employer]ON APPRENTICE LAB BLOOD ORDERABLES Final R esult Performing Organization Address City/[facility]/ZIP Co de Phone Number [facility] [address] [place] [address], [place] [phone] * HIV 1,2 antibody, p24 antigen with reflex to differentiation (06/19/2024 8:22 AM EST) [facility] HIV Combo AB/AG Negative Negative LAB CHEMISTRY METHOD 06/19/2024 11:04 AM EST [facility] Blood Venous blood specimen / Unknown Venipuncture / Unknown 06/19/2024 8:22 AM EST 06/19/2024 8:22 AM EST Narrative [facility] - 06/19/2024 11:04 AM EST This assay is a 4th generation assay allowing for earlier detection of HIV infection by detecting the presence of the HIV-1 p24 antigen as well as the traditional antibodies to HIV type 1 (including group O) and type 2. ??Use of a 4th generation assay is the current CDC recommendation for HIV screening. Aurelio Smith CEMENT [employer]ON APPRENTICE LAB BLOOD ORDERABLES Final R esult Performing Organization Address City/[facility]/ZIP Co de Phone Number [facility] [address] [place] [address], [place] [phone] * (ABNORMAL) Hemoglobin A1c (06/19/2024 8:22 AM EST) [facility] Hemoglobin A1C 6.6(H) <6.5 % LAB CHEMISTRY METHOD 06/19/2024 11:06 AM EST [facility] Mean Bld Glu Estim. 143 mg/dL LAB CHEMISTRY METHOD 06/19/2024 11:06 AM [facility] Blood Venous blood specimen / Unknown Venipuncture / Unknown 06/19/2024 8:22 AM EST 06/19/2024 8:22 AM EST us Aurelio Smith CEMENT MASON APPRENTICE LAB BLOOD ORDERABLES Final R esult [facility] [address] [place] [address], [place] [phone] * (ABNORMAL) Basic metabolic panel (06/19/2024 8:22 AM EST) Sodium 139 133 - 145 mmol/L LAB CHEMISTRY METHOD 06/19/2024 10:15 AM [facility] Potassium 4.5 3.5 - 5.5 mmol/L LAB CHEMISTRY METHOD 06/19/2024 10:15 AM [facility] Chloride 105 96 - 110 mmol/L LAB CHEMISTRY METHOD 06/19/2024 10:15 AM [facility] CO2 26 21 - 32 mmol/L LAB CHEMISTRY METHOD 06/19/2024 10:15 AM [facility] Anion Gap 8 3 - 11 LAB CHEMISTRY METHOD 06/19/2024 10:15 AM [facility] Glucose 134(H) 70 - 100 mg/dL LAB CHEMISTRY METHOD 06/19/2024 10:15 AM [facility] BUN 12 5 - 25 mg/dL LAB CHEMISTRY METHOD 06/19/2024 10:15 AM [facility] Creatinine 1.22 0.70 - 1.30 mg/dL LAB CHEMISTRY METHOD 06/19/2024 10:15 AM [facility] eGFR 73 >=60 mL/min/1. 73m2 LAB CHEMISTRY METHOD 06/19/2024 10:15 AM [facility] Comment:Calculation based on the??Chronic Kidney Disease Epidemiology Collaboration (CKD-EPI) equation refit??without adjustment for race. BUN/Creatinine Ratio 9.8 LAB CHEMISTRY METHOD 06/19/2024 10:15 AM EST [facility] Calcium 9.4 8.5 - 10.5 mg/dL LAB CHEMISTRY METHOD 06/19/2024 10:15 AM EST [facility] Blood Venous blood specimen / Unknown Venipuncture / Unknown 06/19/2024 8:22 AM EST 06/19/2024 8:22 AM EST Aurelio Smith CEMENT MASON APPRENTICE LAB BLOOD ORDERABLES Final R esult Performing Organization Address [facility]/ZIP Co de Phone Number [facility] [address] [place] [address], [place] [phone] * Microalbumin creatinine urine ratio (03/02/2024 9:08 AM EST) Creatinine, Urine 193.0 mg/dL LAB CHEMISTRY METHOD 03/02/2024 10:53 AM EST [facility] Microalb, Ur <5.0 0.0 - 29.0 mg/L LAB CHEMISTRY METHOD 03/02/2024 10:53 AM [facility] Microalb/Creat Ratio <3 <30 mg/g creat LAB CHEMISTRY METHOD 03/02/2024 10:53 AM EST [facility] Urine Urine specimen obtained by clean catch procedure / Unknown Non-blood Collection / Unknown 03/02/2024 9:08 AM EST 03/02/2024 9:08 AM EST Aurelio Smith CEMENT [employer] APPRENTICE LAB URINE ORDERABLES Final R esult Performing Organization Address [facility]/ZIP Co de Phone Number [facility] [address] [place] [address], [place] [phone] * (ABNORMAL) Lipid panel (08/28/2023) LDL/HDL Ratio 5(A) 0 - 4 Triglycerides 180(A) 0 - 150 mg/dL Cholesterol 248(A) 0 - 200 mg/dL HDL 50 >=40 mg/dL LDL Cholesterol 162(A) 0 - 100 mg/dL Blood Venous blood specimen / Unknown us Historical Provider LAB BLOOD ORDERABLES Sis l Result from Last 3 Months or Most Recently Relevant to Health Maintenance Insurance [facility] Care Teams Band Saw Operator Relationship Specialty Start Date End Date Carmita Joaquin MD [address] [place] [address] PCP - General Internal Medicine 04/24/21
--- OUTSIDE RECORDS SUMMARY | 2024-06-26 13:09 | XMS_ITS | Encounter Summary ---
Author Organization [facility] Address [address] [place] [address] Care Team Providers Care Director Embalmer Name Role Phone Carmita Joaquin MD Primary Care Provider [phone] Reason for Visit * Reason Onset Date Comments TRIAGE 03/03/2024 CHEST PAIN Encounter Details Date Type Department Care Team (Late st Contact Info) Description 03/03/2024 Nurse Triage Adult Medicine [facility] [address] [place] [address] Carmita Joaquin MD [address] [place] [address] TRIAGE (CHEST PAIN) Social History Tobacco Use Types Packs/Day Years [...] on file documented as of this encounter Progress Notes * Sonja Kaye RN - 03/03/2024 9:59 AM EST Reason for Disposition ??? SEVERE chest pain Answer Assessment - Initial Assessment Questions 1. LOCATION: Where does it hurt? Left side 2. RADIATION: Does the pain go anywhere else? (e.g., into neck, jaw, arms, back) Was radiating to left shoulder and neck and to the back 3. ONSET: When did the chest pain begin? (Minutes, hours or days) 1 week ago after exercising, has had pain since then 4. PATTERN: Does the pain come and go, or has it been constant since it started? Does it get worse with exertion? Pain does come and go, worse with movement , no pain with exertion 5. DURATION: How long does it last (e.G., seconds, minutes, hours) Of moving has pain 6. SEVERITY: How bad is the pain? (e.g., Scale 1-10; mild, moderate, or severe) - MILD (1-3): Doesn't interfere with normal activities. - MODERATE (4-7): Interferes with normal activities or awakens from sleep. - SEVERE (8-10): Excruciating pain, unable to do any normal activities. 8 over the weekend 7. CARDIAC RISK FACTORS: Do you have any history of heart problems or risk factors for heart disease? (e.g., angina, prior heart attack; diabetes, high blood pressure, high cholesterol, smoker, or strong family history of heart disease) Htn , DM, high cholesterol 8. PULMONARY RISK FACTORS: Do you have any history of lung disease? (e.g., blood clots in lung, asthma, emphysema, control pills) None 9. CAUSE: What do you think is causing the chest pain? Muscle pain 10. OTHER SYMPTOMS: Do you have any other symptoms? (e.g., dizziness, nausea, vomiting, sweating,fever, difficulty breathing, cough) Pt C/O chest pain which is worse with deep breath and movement, pt denies any SOB, is able to speakin full sentences and has no audible wheezing/stridor, pt has not noted any increase in pain with activity, pain is constant, located in the left side of the chest with no radiation, pt denies any rapid or irregular HR , no N/V/D or fever, has not had a cough, pt denies weakness or dizziness, c/o right leg pain no redness or swelling. Pt has no family cardiac hx, has personal hx of HTN / high cholesterol and does not smoke 11. : Is there any chance you are ? When was your last menstrual period? N/A Protocols used: Chest Pain-A-AH * Marlin Mora - 03/03/2024 9:32 AM EST Patient call requires triage: Symptoms patient is presenting: CHEST PAIN How long has patient had these symptoms?: 5 DAYS For ALL patients calling to schedule any appointment (routine, sick visit, follow up, consult, etc.) in the outpatient setting please ask the following questions: Do you have fever of higher than 101, sore throat with difficulty swallowing or severe shortness ofbreath? no If YES to any of these above symptoms, send a message to triage and do not book. Red dot. If no, an audio or video visit should be booked. Have you had close contact with someone with Coronavirus in the last 14 days? no Have you traveled abroad? no Have you traveled recently to another state outside of [place], [place], [place], [place], [place], [place], [place]? no o If yes, did you quarantine for 14 days or have a negative covid test? no If yes to any of the above, patient is not to be scheduled in office until after 14 day quarantine or negative covid test. If pain or injury related was it due to an accident at work or from a motor vehicle accident? If yes, date of accident/Injury: No If yes, gather 3rd democrat insurance information Third Republican Information: not applicable PCP: Carmita Joaquin MD Payor: [employer] [facility] / Plan: [employer] [facility] HMO / Product Type: *No Product type* / documented in this encounter Plan of Treatment Upcoming Encounters Date Type Department Care Team (Late st Contact Info) Description 08/12/2024 1:30 PM EDT Appointment [facility] Endoscopy [address] [place] [id number] Melvin Brink MD [address] [address] documented as of this encounter Visit Diagnoses Not on filedocumented in this encounter Care Teams Director Embalmer Relationship Specialty Start Date End Date Carmita Joaquin MD [address] [place] [address] PCP - General Internal Medicine 04/24/21 documented as of this encounter
== END 2024-06-26 11:24 | disposition home or self-care (01) ==
LOC: HO.HMGCLDS 11:23
PROVIDERS: PCP Nurse Practitioner Family; Visit Provider Nurse Practitioner Family
DX: N41.9 Inflammatory disease of prostate, unspecified (principal); R10.2 Pelvic and perineal pain
CPT/HCPCS: 87086